=== PATIENT | male | born 1965 | race Caucasian/White ===

== ENCOUNTER 2020-12-04 17:52 | Emergency (ER) | payer MEDICARE, MEDICAID, SELFPAY ==
--- NOTE | ~2020-12-04 | CT_ITS ---
EXAMINATION: CT CHEST WITHOUT CONTRAST CLINICAL INFORMATION: Fall. Left chest wall bruising. Pain on inspiration. COMPARISON: 01/25/2017 TECHNIQUE: Multidetector volumetric CT imaging of the chest was done. Axial MIP volume rendering provided. Sagittal and coronal reformatted images were obtained. This CT examination was performed using dose optimization techniques as appropriate, variously including the following: *Automated exposure control *Adjustment of mA and/or kV according to patient size (this includes techniques or standardized protocols for targeted exams where dose is matched to indication/reason for exam; i.e. extremities or head) *Use of iterative reconstruction technique DLP: 1536 mGy-cm (in conjunction with head and cervical spine CTs) FINDINGS: LUNGS: The central airways are patent. Mild bronchial wall thickening of the lower lobes. Mild centrilobular emphysema. Paraseptal emphysema at the lung apices. There is a spiculated right upper lobe nodule measuring 0.8 cm on series 24 image 91. This is similar in appearance to the 2017 study. Multiple calcified granulomata are present. No pneumothorax. MEDIASTINUM: Normal heart size. Coronary artery calcifications are present. No mediastinal lymphadenopathy. The thyroid gland is unremarkable. PLEURA: There is no pleural effusion. No pleural mass or thickening. AXILLA: No lymphadenopathy. Left chest wall generator noted. UPPER ABDOMEN: Simple cyst at the midpole of the right kidney measuring 2.2 cm. No follow-up imaging recommended. OSSEOUS STRUCTURES: No acute or suspicious osseous abnormality. Mild degenerative changes of the spine. The ribs appear intact. CT/CT chest wo con IMPRESSION: No acute traumatic finding of the chest. No rib fractures are identified. Chronic changes in the lungs of emphysema. Spiculated right apical nodule is similar in appearance to the 2017 study.
--- NOTE | ~2020-12-04 | CT_ITS ---
EXAMINATION: NONCONTRAST HEAD CT NONCONTRAST CERVICAL SPINE CT INDICATION INFORMATION: Head trauma. Loss of balance. COMPARISON: 02/27/2019 TECHNIQUE: Separate noncontrast CT examinations of the head and cervical spine were performed. Coronal and sagittal images were created for each examination at the technologist workstation. This CT examination was performed using dose optimization techniques as appropriate, variously including the following: *Automated exposure control *Adjustment of mA and/or kV according to patient size (this includes techniques or standardized protocols for targeted exams where dose is matched to indication/reason for exam; i.e. extremities or head) *Use of iterative reconstruction technique DLP: 1536 mGy-cm (in conjunction with chest CT) FINDINGS: Head: Redemonstration of postoperative findings related to right-sided craniotomy. Resection cavity of the right temporal and parietal lobes communicating with the right lateral ventricle where there is also ex vacuo dilatation. Gliosis of the posterior right frontal lobe, right parietal lobe, and right temporal lobe, unchanged. There is no evidence of acute intracranial hemorrhage or territorial infarction. No abnormal mass effect or midline shift is seen. Pierce to white matter differentiation is well preserved. No extra-axial fluid collections are identified. No hydrocephalus. No acute osseous or soft tissue abnormality. The mastoid air cells and visualized portions of the paranasal sinuses are well aerated. Cervical spine: Straightening of the normal cervical lordosis. There is anatomic alignment of the vertebral bodies and posterior elements. The atlantoaxial and atlantooccipital articulations are intact. Vertebral body heights are maintained. There is multilevel intervertebral disc space narrowing with endplate osteophyte formation and facet arthropathy. No evidence of acute fracture. No prevertebral soft tissue swelling. Paraseptal emphysema at the lung apices noted. The thyroid gland is unremarkable. CT/CT cervical spine wo con IMPRESSION: 1. No acute intracranial finding. Chronic postoperative changes. 2. No acute fracture or malalignment of the cervical spine with mild to moderate multilevel degenerative change.
[2020-12-04 18:20] VITALS: BP 115/61; PULSE 55; RESP 16; TEMP 37; O2SAT 98; BMI 28.7
--- NOTE | 2020-12-04 21:23 | ED_ITS ---
HPI - Fall General Chief Complaint: Fall Stated Complaint: fall Time Seen by Provider: 12/04/20 21:00 Source: patient Mode of arrival: ambulatory Limitations: no limitations History of Present Illness HPI Narrative: 55-year-old male presents with injury sustained from a fall last Monday. States that he fell backwards hit the back of his head and the left chest wall onto the ground. States that he does feel loss of balance, and left- sided chest wall pain. He does have a history of multiple brain surgeries with traumatic brain injury in the past. He is unsure if this loss of balance is because of new injury. complaint: fall Onset (ago): week(s) (1) Fall from: standing Fall witnessed: no Place fall occurred: home Loss of consciousness: none Prolonged down time: no Symptoms prior to fall: none Context: tripped/slipped Location of injury: head and chest Severity: moderate Quality: aching Associated symptoms (after fall): headache, neck pain, lightheaded and vertigo Related Data Allergies Allergy/AdvReac Type Severity Reaction Status Date / Time No Known Allergies Allergy Verified 01/27/20 13:42 Review of Systems Review of Systems: Constitutional: No Fever, No Chills ENT/Mouth: No Ear Pain, No Hoarseness, No sore throat Eyes: No Eye Pain, No Swelling, No Redness, No Foreign Body Cardiovascular: Positive Chest Pain, No SOB Respiratory: No Cough, No Dyspnea Gastrointestinal: No Nausea, No Vomiting, No Diarrhea, No abdominal Pain Genitourinary: No Dysuria, No Hematuria Musculoskeletal: positive neck and chest wall pain, No Myalgias, No Joint Swelling Skin: No Skin lacerations, No rash Neuro: No Weakness, No Numbness, No Paresthesias, No Loss of Consciousness, positive Dizziness, positive Headache Psych: No Anxiety/Panic, No Depression Heme/Lymph: no easy bruising, no Lymphadenopathy Endocrine: No Polyuria, No Polydipsia Yes all other systems are reviewed and are negative [facility] Past Medical History Attestation statement: The following information was validated with the patient. 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 Degenerative disc disease, cervical GERD (gastroesophageal reflux disease) History of DVT (deep vein thrombosis) Lupus anticoagulant positive Pulmonary nodule Seizure disorder Tarsal tunnel syndrome of left side Thrombocytopenia Tobacco abuse Ulnar neuropathy Surgical History History of surgery Family History Family History Father CVD (cardiovascular disease) Cancer of spine Mother Lung cancer Maternal Grandfather Gastric cancer Paternal Grandfather Colon cancer Paternal Aunt Breast cancer Social History Social History Advance Directives: No Physical Exam Vital Signs: Vital Signs: Last Vital Signs Temp 98.6 F 12/04/20 18:20 Pulse 55 12/04/20 18:20 Resp 16 12/04/20 18:20 BP 115/61 12/04/20 18:20 Pulse Ox 98 12/04/20 18:20 Body Mass Index 28.7 Appearance: Alert. Oriented X3. No acute distress. Head: Normal external exam. Normocephalic. Atraumatic. No Chacko signs noted. No raccoon eyes noted Eyes: PERRLA. EOMI. Conjunctiva and sclera normal. Eyelids normal. ENT: TM's Normal. Pharynx normal. Uvula midline. Moist mucous membranes. No trismus noted. No drooling noted. No muffled voice noted. Neck: Normal inspection. Neck supple. No adenopathy. Thyroid Normal. No meningeal signs. No neck mass noted. Vertebral tenderness noted without any step-offs. CVS: Normal heart rate and rhythm. Heart sound normal. No murmurs noted. Pulses equal to all extremities. Respiratory: No respiratory distress. Painless inspiration. Breath sounds normal. No wheezes/rales/rhonchi noted. Chest wall tender to palpation, bruising noted to the left chest wall at the midclavicular line to the nipple. No accessory muscle usage noted or decreased air movement noted. Abdomen: Soft and nontender. Bowel sounds normal in all 4 quadrants. No distention noted. No organomegaly noted. No visible injury noted. Back: No CVA tenderness. Full range of motion noted. Skin: Skin warm and dry. Normal skin color. Normal skin turgor. No rashes/lesions/lacerations noted. Extremities: No lower extremity edema. Extremities exhibit normal range of motion. Extremities nontender. Neuro: cranial nerves 2-12 intact, no focal neural deficits, strength 5/5 to all extremities no sensory deficit. Positive Romberg. Course Course Course Narrative: Patient presents with injury sustained from fall that occurred approximately week ago. Patient states to have some dizziness, loss of balance, and has left wall chest pain with some bruising from the midclavicular line to the nipple. Will order CT scan of head neck and chest. Patient does have a positive Romberg, prior history of TBI and brain surgery. CTA of head and neck are negative for acute findings. CT of chest is negative. Plan of care is to discharge home. Patient verbalized understanding of and agrees to plan of care discharge home. MDM - Fall Differential Diagnosis Differential diagnosis: Likely dislocation, fracture, compression fracture and concussion without loss of consciousness Medical Records Attestation: I reviewed the patient's medical records. Imaging Data Chest CT: Attestation: I personally reviewed and interpreted this imaging study as follows: Radiologist's impression: EXAMINATION: CT CHEST WITHOUT CONTRAST CLINICAL INFORMATION: Fall. Left chest wall bruising. Pain on inspiration.? COMPARISON: 01/25/2017? TECHNIQUE: Multidetector volumetric CT imaging of the chest was done. Axial MIP volume rendering provided. Sagittal and coronal reformatted images were obtained.? This CT examination was performed using dose optimization techniques as appropriate, variously including the following: *Automated exposure control *Adjustment of mA and/or kV according to patient size (this includes techniques or standardized protocols for targeted exams where dose is matched to indication/reason for exam; i.e. extremities or head) *Use of iterative reconstruction technique DLP: 1536 mGy-cm (in conjunction with head and cervical spine CTs) FINDINGS: LUNGS: The central airways are patent. Mild bronchial wall thickening of the lower lobes. Mild centrilobular emphysema. Paraseptal emphysema at the lung apices. There is a spiculated right upper lobe nodule measuring 0.8 cm on series 24 image 91. This is similar in appearance to the 2017 study. Multiple calcified granulomata are present. No pneumothorax.? MEDIASTINUM: Normal heart size. Coronary artery calcifications are present. No mediastinal lymphadenopathy. The thyroid gland is unremarkable.? PLEURA: There is no pleural effusion. No pleural mass or thickening.? AXILLA: No lymphadenopathy. Left chest wall generator noted. UPPER ABDOMEN: Simple cyst at the midpole of the right kidney measuring 2.2 cm. No follow-up imaging recommended.? OSSEOUS STRUCTURES: No acute or suspicious osseous abnormality. Mild degenerative changes of the spine. The ribs appear intact.? CT/CT chest wo con IMPRESSION: No acute traumatic finding of the chest. No rib fractures are identified. ? Chronic changes in the lungs of emphysema. Spiculated right apical nodule is similar in appearance to the 2017 study.? ? CT head neck: Attestation: I personally reviewed and interpreted this imaging study as follows: Radiologist's impression: EXAMINATION: NONCONTRAST HEAD CT NONCONTRAST CERVICAL SPINE CT INDICATION INFORMATION: Head trauma. Loss of balance. COMPARISON: 02/27/2019 TECHNIQUE: Separate noncontrast CT examinations of the head and cervical spine were performed. Coronal and sagittal images were created for each examination at the technologist workstation. This CT examination was performed using dose optimization techniques as appropriate, variously including the following: *Automated exposure control *Adjustment of mA and/or kV according to patient size (this includes techniques or standardized protocols for targeted exams where dose is matched to indication/reason for exam; i.e. extremities or head) *Use of iterative reconstruction technique DLP: 1536 mGy-cm (in conjunction with chest CT) FINDINGS: Head: Redemonstration of postoperative findings related to right-sided craniotomy. Resection cavity of the right temporal and parietal lobes communicating with the right lateral ventricle where there is also ex vacuo dilatation. Gliosis of the posterior right frontal lobe, right parietal lobe, and right temporal lobe, unchanged. There is no evidence of acute intracranial hemorrhage or territorial infarction. No abnormal mass effect or midline shift is seen. Pierce to white matter differentiation is well preserved. No extra-axial fluid collections are identified. No hydrocephalus.? No acute osseous or soft tissue abnormality. The mastoid air cells and visualized portions of the paranasal sinuses are well aerated. Cervical spine: Straightening of the normal cervical lordosis. There is anatomic alignment of the vertebral bodies and posterior elements. The atlantoaxial and atlantooccipital articulations are intact. Vertebral body heights are maintained. There is multilevel intervertebral disc space narrowing with endplate osteophyte formation and facet arthropathy. No evidence of acute fracture. No prevertebral soft tissue swelling. Paraseptal emphysema at the lung apices noted. The thyroid gland is unremarkable. CT/CT head/brain wo con IMPRESSION: ? 1. No acute intracranial finding. Chronic postoperative changes. 2. No acute fracture or malalignment of the cervical spine with mild to moderate multilevel degenerative change. Discharge Plan Discharge Clinical Impression: Concussion without loss of consciousness, Rib contusion Patient Disposition: Home, Self-Care Instructions: Concussion (ED), Contusion in Adults (ED), Post Concussion Syndrome (ED), Rib Contusion (ED) Additional Instructions: You were evaluated for injury sustained from a fall. Your CT scan of head neck are negative for acute findings. CT scan of the chest is negative for fracture, does show some chronic changes that need to be followed by your primary care physician. CT/CT chest wo con IMPRESSION: No acute traumatic finding of the chest. No rib fractures are identified. ? Chronic changes in the lungs of emphysema. Spiculated right apical nodule is similar in appearance to the 2017 study.? ? Your injuries are consistent with a rib contusion. Please use Tylenol Motrin as needed for pain management. Thank you for choosing this emergency department for evaluation. Please follow-up with primary care physician as needed. Return to the emergency department for any new, concerning, or worsening symptoms. Interventions: ED Discharge Assessment Last Done: 12/04/20 23:51 Discharge Date/Time: 12/04/20 23:51
== END 2020-12-04 23:51 | disposition home or self-care (01) ==
PROVIDERS: Emergency Provider Emergency Medicine Emergency Medical Services; PCP Internal Medicine
DX: S06.0X0A Concussion without loss of consciousness, initial encounter (principal); S20.213A Contusion of bilateral front wall of thorax, initial encounter; R07.81 Pleurodynia; M54.2 Cervicalgia; W01.0XXA Fall on same level from slipping, tripping and stumbling without subsequent striking against object, initial encounter; Y93.9 Activity, unspecified; Y92.9 Unspecified place or not applicable; Y99.9 Unspecified external cause status; Z87.820 Personal history of traumatic brain injury; Z79.899 Other long term (current) drug therapy
CPT/HCPCS: 70450; 71250; 72125; 99283; 99284

== ENCOUNTER 2020-12-24 08:54 | Outpatient (REF) | payer MEDICARE, MEDICAID, SELFPAY ==
[2020-12-24 09:27] LABS: Hematocrit 44.3 % (42-52); Hemoglobin 14.6 g/dl (14.0-18.0); Mean Corpuscular Hemoglobin 30.7 pg (27.0-33.0); Mean Corpuscular Volume 93.1 fL (80-98); Mean Platelet Volume 10.8 fL (9.4-12.4); Platelet Count 116 X10*3/uL (160-400); Red Blood Count 4.76 X10*6/uL (4.60-5.80); Red Cell Distribution Width 13.5 % (11.0-16.0)
[2020-12-24 10:05] LABS: Anion Gap 12 (12-20); Blood Urea Nitrogen 9 mg/dL (9-16); Calcium 9.5 mg/dL (8.4-10.2); Carbon Dioxide 21 mmol/L (22-29); Chloride 113 mmol/L (96-108); Cholesterol 178 mg/dL; Estimated Glomerular Filt Rate > 60; Glucose Fasting 106 mg/dL (60-99); HDL Cholesterol 41 mg/dL; LDL Cholesterol Calculated 123 mg/dl; Potassium 4.4 mmol/L (3.3-5.1); Sodium 142 mmol/L (135-145); Triglycerides 71 mg/dL
[2020-12-24 10:17] LABS: Prostate Specific Antigen Scr 0.19 ng/mL (<0.05-4.0); Vitamin D 25-OH Total 46.6 ng/mL (>30)
== END 2020-12-24 08:55 | disposition home or self-care (01) ==
LOC: HO.LAB 08:54
PROVIDERS: PCP Internal Medicine; Visit Provider Nurse Practitioner Family
DX: G40.909 Epilepsy, unspecified, not intractable, without status epilepticus (principal); R26.81 Unsteadiness on feet; E55.9 Vitamin D deficiency, unspecified; F32.1 Major depressive disorder, single episode, moderate; E78.00 Pure hypercholesterolemia, unspecified; Z12.5 Encounter for screening for malignant neoplasm of prostate; Z13.1 Encounter for screening for diabetes mellitus
CPT/HCPCS: 36415; 80048; 80061; 82306; 82947; 84153; 85027

== ENCOUNTER 2021-01-05 14:48 | Emergency (ER) | payer MEDICARE, MEDICAID, SELFPAY ==
--- NOTE | 2021-01-05 | ECG_ITS ---
Test Reason : SEIZURE Blood Pressure : / mmHG Vent. Rate : 070 BPM Atrial Rate : 070 BPM P-R Int : 142 ms QRS Dur : 096 ms QT Int : 382 ms P-R-T Axes : 064 084 039 degrees QTc Int : 412 ms Normal sinus rhythm Nonspecific ST abnormality Borderline ECG When compared with ECG of 19-OCT-2018 11:22, Vent. rate has increased BY 28 BPM Referred By: Jaida Chun Electronically Signed By:JOSE BA MD
--- NOTE | ~2021-01-05 | CT_ITS ---
EXAMINATION: CT BRAIN AND CT CERVICAL SPINE WITHOUT CONTRAST. CLINICAL INFORMATION: Seizure and head injury. COMPARISON: None TECHNIQUE: 5 mm thin axial and reformatted 2 mm thin coronal images of brain were obtained. Subsequently axial 3 mm thin and reformatted 2 mm thin sagittal and coronal images of cervical spine were obtained. DLP 1147 FINDINGS: BRAIN: There is a right parietal craniotomy and right parietal temporal lobe encephalomalacia from old intervention. There is no acute intra-axial, extra-axial bleed, masses or midline shift. There is no acute infarction in evolution. There is ex vacuole dilatation of right lateral ventricle occipital horn. Bone windows reveal a right parietal craniotomy. No calvarial fracture seen. Bilateral mastoid sinuses and paranasal sinuses are well-aerated. CERVICAL SPINE: There is mild straightening of cervical lordosis. The vertebral heights and alignment is normal. There is loss of C3-C4, C5-C6 and C6-C7 disc heights with ventral spondylosis. No lytic or sclerotic process seen. The craniovertebral junction and the C1-C2 alignment is normal. The prevertebral and paravertebral soft tissues are normal. The airway is widely patent. There is mild bilateral apical bullous changes. CT/CT cervical spine wo con IMPRESSION: No acute intracranial process seen. There is a right right temporal encephalomalacia with overlying craniotomy changes from previous intervention. No midline shift. Mild straightening of cervical lordosis with degenerative disc changes C3-C4, C5-C6 and C6-C7 disc levels. No visible acute fracture, dislocation or subluxation seen. There is bilateral apical bullous disease
--- NOTE | ~2021-01-05 | CT_ITS ---
EXAMINATION: CT BRAIN AND CT CERVICAL SPINE WITHOUT CONTRAST. CLINICAL INFORMATION: Seizure and head injury. COMPARISON: None TECHNIQUE: 5 mm thin axial and reformatted 2 mm thin coronal images of brain were obtained. Subsequently axial 3 mm thin and reformatted 2 mm thin sagittal and coronal images of cervical spine were obtained. DLP 1147 FINDINGS: BRAIN: There is a right parietal craniotomy and right parietal temporal lobe encephalomalacia from old intervention. There is no acute intra-axial, extra-axial bleed, masses or midline shift. There is no acute infarction in evolution. There is ex vacuole dilatation of right lateral ventricle occipital horn. Bone windows reveal a right parietal craniotomy. No calvarial fracture seen. Bilateral mastoid sinuses and paranasal sinuses are well-aerated. CERVICAL SPINE: There is mild straightening of cervical lordosis. The vertebral heights and alignment is normal. There is loss of C3-C4, C5-C6 and C6-C7 disc heights with ventral spondylosis. No lytic or sclerotic process seen. The craniovertebral junction and the C1-C2 alignment is normal. The prevertebral and paravertebral soft tissues are normal. The airway is widely patent. There is mild bilateral apical bullous changes. CT/CT head/brain wo con IMPRESSION: No acute intracranial process seen. There is a right right temporal encephalomalacia with overlying craniotomy changes from previous intervention. No midline shift. Mild straightening of cervical lordosis with degenerative disc changes C3-C4, C5-C6 and C6-C7 disc levels. No visible acute fracture, dislocation or subluxation seen. There is bilateral apical bullous disease
[2021-01-05 15:04] VITALS: BP 113/64; BP 135/59; PULSE 69; PULSE 77; TEMP 37.1; O2SAT 96; BMI 25.0
--- NOTE | 2021-01-05 15:25 | ED_ITS ---
HPI - Seizure General Chief Complaint: Seizure Stated Complaint: SZ W/FALL OUTSIDE,HEAD ABRASIONS Time Seen by Provider: 01/05/21 15:22 Source: patient and EMS Mode of arrival: EMS Limitations: no limitations History of Present Illness HPI Narrative: 55-year-old male came in by ambulance after having seizure. 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 Patient in the emergency department is awake, alert, able to provide decent history. Seizure medications patient take are clobazam?10 mg PO BID lacosamide?(Vimpat) 300 mg PO BID lamotrigine?50 mg PO BID lamotrigine?400 mg PO BID lorazepam?0 mg PO topiramate?50 mg PO BID topiramate?200 mg PO BID Related Data Home Medications Medication Instructions Recorded Confirmed cholecalciferol (vitamin D3) 50 50 mcg PO DAILY 12/23/20 12/23/20 mcg (2,000 unit) capsule clobazam 10 mg tablet 10 mg PO BID 12/23/20 12/23/20 lacosamide 100 mg tablet (Vimpat) 300 mg PO BID tab 12/23/20 12/23/20 lamotrigine 200 mg tablet 400 mg PO BID 12/23/20 12/23/20 lamotrigine 25 mg tablet 50 mg PO BID 12/23/20 12/23/20 lorazepam 1 mg tablet 0 mg PO 12/23/20 12/23/20 topiramate 200 mg tablet 200 mg PO BID 12/23/20 12/23/20 topiramate 25 mg sprinkle capsule 50 mg PO BID cap 12/23/20 12/23/20 Allergies Allergy/AdvReac Type Severity Reaction Status Date / Time No Known Allergies Allergy Verified 12/23/20 10:41 Review of Systems Review of Systems: All other systems are reviewed and are negative Constitutional: Reports as per HPI and Reports no additional constitutional complaints Eyes: Reports as per HPI and Reports no additional eye complaints Reports system reviewed and no additional complaints, except as documented Cardiovascular: Reports as per HPI and Reports no additional cardiovascular complaints Respiratory: Reports as per HPI and Reports no additional respiratory complaints Gastrointestinal: Reports as per HPI and Reports no additional gastrointestinal complaints Genitourinary: Reports no additional female genitourinary complaints Musculoskeletal: Reports no additional musculoskeletal complaints Skin/Breast: Reports system reviewed and no additional complaints, except as docu Psychiatric: Reports no additional psychiatric complaints Endocrine: Reports no additional endocrine complaints Hematologic/Lymphatic: Reports no additional hematologic/lymphatic complaints Allergic/Immunologic: Reports no additional allergic/immunologic complaints Reports system reviewed and no additional complaints, except as documented and Reports Abnormal speech present [facility] Past Medical History Medical History Anxiety and depression Carpal tunnel syndrome, left Closed left arm fracture 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 Degenerative disc disease, cervical GERD (gastroesophageal reflux disease) History of DVT (deep vein thrombosis) Lupus anticoagulant positive Pulmonary nodule Seizure disorder Tarsal tunnel syndrome of left side Thrombocytopenia Tobacco abuse Ulnar neuropathy Surgical History History of surgery History of surgery Family History Family History Father CVD (cardiovascular disease) Cancer of spine Mother Lung cancer Maternal Grandfather Gastric cancer Paternal Grandfather Colon cancer Paternal Aunt Breast cancer Social History Social History Housing: Condominium Alcohol intake: never Patient Tobacco Use Status: Current everyday Tobacco user Tobacco use type: Cigarette Cigarettes Per Day: 10 Advance Directives: No Advance Directives Information Provided: No service: No Current occupational status: disabled Physical Exam Vital Signs: Vital Signs: Last Vital Signs Temp 98.7 F 01/05/21 15:04 Pulse 69 01/05/21 15:04 BP 113/64 01/05/21 15:04 Pulse Ox 96 01/05/21 15:04 Body Mass Index 25.0 Vital signs have been reviewed as appeared to be correct. Blood pressure normal. Heart rate normal. Respiration rate normal. Temperature normal. Oxygen saturation normal. Appearance: Alert. Oriented X3. No acute distress. Head: Normal external exam. Normocephalic. Atraumatic. Half a cm small cut to the left temporal area. Eyes: PERRLA. EOMI. Conjunctiva and sclera normal. Eyelids normal. ENT: TM's Normal. Pharynx normal. Uvula midline. Moist mucous membranes. No trismus noted. No drooling noted. No muffled voice noted. Neck: Normal inspection. Neck supple. FROM. No adenopathy. Thyroid Normal. No meningeal signs. No neck mass noted. CVS: Normal heart rate and rhythm. Heart sound normal. No murmurs noted. Pulses normal throughout. Respiratory: No respiratory distress. Painless inspiration. Breath sounds normal. No wheezes/rales/rhonchi noted. Chest nontender. No accessory muscle usage noted or decreased air movement noted. Abdomen: Soft and nontender. Bowel sounds normal in all 4 quadrants. No distention noted. No organomegaly noted. No visible injury noted. Back: No CVA tenderness. Full range of motion noted. Skin: Skin warm and dry. Normal skin color. Normal skin turgor. No rashes/lesions/lacerations noted. Extremities: No lower extremity edema. Extremities exhibit normal range of motion. Extremities nontender. Neuro: Oriented X 3. Cranial nerve exam: II-XII are grossly intact No motor deficit. No sensory deficit. Reflexes normal. Course Course Course Narrative: Assessment and plan. 55-year-old male known history of seizure claimed that he is compliant with his medications, had a seizure with aura today, patient now is awake, alert, oriented x3, feels better, patient would like to be discharged home patient will be walking home which is about 15 minutes, I offer the patient to call a taxi or get a ride from a friend or family member the patient would not wait. MDM - Seizure Medical Records Attestation: I reviewed the patient's medical records. Imaging Data Head, cervical spine CT: Radiologist's impression: No acute intracranial process seen. ? There is a right right temporal encephalomalacia with overlying craniotomy changes from previous intervention. No midline shift. ? Mild straightening of cervical lordosis with degenerative disc changes C3-C4, C5-C6 and C6-C7 disc levels. No visible acute fracture, dislocation or subluxation seen. ? There is bilateral apical bullous disease? Discharge Plan Discharge Clinical Impression: Seizure disorder Patient Disposition: Home, Self-Care Instructions: Generalized Tonic Clonic Seizures (ED) Prescriptions: No Action Vimpat 100 mg tablet 300 mg PO BID RF: 0 cholecalciferol (vitamin D3) 50 mcg (2,000 unit) capsule 50 mcg PO DAILY RF: 0 clobazam 10 mg tablet 10 mg PO BID RF: 0 topiramate 25 mg capsule, sprinkle 50 mg PO BID RF: 0 topiramate 200 mg tablet 200 mg PO BID RF: 0 lamotrigine 200 mg tablet 400 mg PO BID RF: 0 lamotrigine 25 mg tablet 50 mg PO BID RF: 0 lorazepam 1 mg tablet 0 mg PO RF: 0 Referrals: Po,Ileana Dumont MD [Primary Care Provider] - 2 days
== END 2021-01-05 16:47 | disposition home or self-care (01) ==
PROVIDERS: Emergency Provider Emergency Medicine; PCP Internal Medicine
DX: G40.909 Epilepsy, unspecified, not intractable, without status epilepticus (principal); F17.210 Nicotine dependence, cigarettes, uncomplicated; Z71.6 Tobacco abuse counseling; Z79.899 Other long term (current) drug therapy
CPT/HCPCS: 70450; 72125; 93005; 99283; 99284

== ENCOUNTER 2021-05-10 11:22 | Outpatient (REF) | payer MEDICARE, MEDICAID, SELFPAY ==
[2021-05-10 11:52] LABS: MANUAL DIFF FLAG NO
[2021-05-10 12:18] LABS: Basophils Percent Auto 0.6 % (0-2); Eosinophils Percent Auto 0.8 % (0-4); Hematocrit 42.8 % (42.0-52.0); Hemoglobin 14.2 g/dl (14.0-18.0); Imm Gran Abs Auto 0.01 X10*3/uL (0.00-0.03); Imm Gran Pct Auto 0.2 % (0.0-0.4); Lymphocytes Absolute Auto 1.4 X10*3/uL (1.2-4.9); Mean Corpuscular HGB Conc 33.2 g/dl (31.0-36.0); Mean Corpuscular Hemoglobin 30.6 pg (27.0-33.0); Mean Corpuscular Volume 92.2 fL (80.0-98.0); Mean Platelet Volume 10.8 fL (9.4-12.4); Monocytes Absolute Auto 0.5 X10*3/uL (0.1-1.2); Monocytes Percent Auto 9.1 % (2-11); Neutrophils Absolute Auto 3.1 x10*3/uL (2.0-8.3); Neutrophils Percent Auto 61.3 % (45-73); Platelet Count 132 X10*3/uL (160-400); Red Blood Count 4.64 X10*6/uL (4.60-5.80); Red Cell Distribution Width 13.1 % (11.0-16.0); White Blood Count 5.1 X10*3/uL (4.8-10.8)
[2021-05-10 12:39] LABS: Alanine Aminotransferase 27 U/L (0-40); Albumin Level 4.5 g/dL (3.5-5.0); Alkaline Phosphatase 97 U/L (39-117); Anion Gap 10 (12-20); Aspartate Amino Transferase 25 U/L (5-37); Bilirubin Total 0.4 mg/dL (0.0-1.0); Blood Urea Nitrogen 12 mg/dL (9-16); Calcium 9.8 mg/dL (8.4-10.2); Carbon Dioxide 27 mmol/L (22-29); Chloride 109 mmol/L (96-108); Estimated Glomerular Filt Rate > 60; Glucose Random 102 mg/dL (60-115); Potassium 4.3 mmol/L (3.3-5.1); Sodium 142 mmol/L (135-145); Total Protein 7.5 g/dL (6.5-8.0)
[2021-05-10 13:01] LABS: Free T4 (Free Thyroxine) 1.13 ng/dL (0.71-1.85); Thyroid Stimulating Hormone 1.37 uIU/mL (0.32-4.0)
[2021-05-10 13:17] LABS: Folate 19.2 ng/mL (> or = 4.0); Vitamin B12 410 pg/mL (200-900)
== END 2021-05-10 11:23 | disposition home or self-care (01) ==
LOC: HO.LAB 11:22
PROVIDERS: PCP Internal Medicine; Visit Provider Internal Medicine
DX: Z13.89 Encounter for screening for other disorder (principal)
CPT/HCPCS: 36415; 80053; 82607; 82746; 84439; 84443; 85025

== ENCOUNTER 2021-05-10 12:02 | Emergency (ER) | payer MEDICARE, MEDICAID, SELFPAY ==
--- NOTE | ~2021-05-10 | CT_ITS ---
EXAMINATION: CT HEAD WITHOUT CONTRAST CT CERVICAL SPINE WITHOUT CONTRAST CLINICAL INFORMATION: Seizure. Headache. COMPARISON: CT head and cervical spine 01/05/2021 TECHNIQUE: Imaging was performed from the skull base to vertex without intravenous administration of contrast. In addition, helical noncontrast CT imaging was acquired through the cervical spine and source images were reviewed along with axial reconstructions and sagittal and coronal MPRs. [This CT examination was performed using dose optimization techniques as appropriate, variously including the following: *Automated exposure control *Adjustment of mA and/or kV according to patient size (this includes techniques or standardized protocols for targeted exams where dose is matched to indication/reason for exam; i.e. extremities or head) *Use of iterative reconstruction technique] DLP: 1258 mGy-cm FINDINGS: HEAD: Status post right parietal craniotomy. Large geographic area of encephalomalacia indicating to the right lateral ventricle involving the right temporal parietal lobe. This unchanged since prior study. No acute intracranial hemorrhage or mass effect. No extra-axial collection. No mass effect. CERVICAL SPINE: There is no evidence of acute cervical spine fracture. Vertebral bodies remain normal in height. Cervical vertebrae have normal alignment. There is multilevel degenerative spondylosis of the cervical spine with disc height narrowing and endplate spurs and facet joint arthrosis No pre- or paravertebral soft tissue abnormality is identified. Emphysematous change of lung apices. CT/CT cervical spine wo con IMPRESSION: 1. No acute intracranial pathology. Stable old right parietal craniotomy and large geographic area of encephalomalacia in the right parietal temporal lobe. 2. No CT evidence of acute cervical spine fracture or traumatic subluxation
--- NOTE | ~2021-05-10 | CT_ITS ---
EXAMINATION: CT HEAD WITHOUT CONTRAST CT CERVICAL SPINE WITHOUT CONTRAST CLINICAL INFORMATION: Seizure. Headache. COMPARISON: CT head and cervical spine 01/05/2021 TECHNIQUE: Imaging was performed from the skull base to vertex without intravenous administration of contrast. In addition, helical noncontrast CT imaging was acquired through the cervical spine and source images were reviewed along with axial reconstructions and sagittal and coronal MPRs. [This CT examination was performed using dose optimization techniques as appropriate, variously including the following: *Automated exposure control *Adjustment of mA and/or kV according to patient size (this includes techniques or standardized protocols for targeted exams where dose is matched to indication/reason for exam; i.e. extremities or head) *Use of iterative reconstruction technique] DLP: 1258 mGy-cm FINDINGS: HEAD: Status post right parietal craniotomy. Large geographic area of encephalomalacia indicating to the right lateral ventricle involving the right temporal parietal lobe. This unchanged since prior study. No acute intracranial hemorrhage or mass effect. No extra-axial collection. No mass effect. CERVICAL SPINE: There is no evidence of acute cervical spine fracture. Vertebral bodies remain normal in height. Cervical vertebrae have normal alignment. There is multilevel degenerative spondylosis of the cervical spine with disc height narrowing and endplate spurs and facet joint arthrosis No pre- or paravertebral soft tissue abnormality is identified. Emphysematous change of lung apices. CT/CT head/brain wo con IMPRESSION: 1. No acute intracranial pathology. Stable old right parietal craniotomy and large geographic area of encephalomalacia in the right parietal temporal lobe. 2. No CT evidence of acute cervical spine fracture or traumatic subluxation
--- NOTE | ~2021-05-10 | XR_ITS ---
EXAMINATION: XR ELBOW, RIGHT CLINICAL INFORMATION: Pain. Seizure. COMPARISON: None TECHNIQUE: AP, lateral, and oblique views of the right elbow. FINDINGS: The bones and soft tissues are normal. No fracture or joint effusion. Alignment is anatomic. Joint spaces are maintained. XR/XR elbow RT min 3V IMPRESSION: Normal right elbow.
--- NOTE | ~2021-05-10 | XR_ITS ---
EXAMINATION: LEFT HAND AND WRIST X-RAY CLINICAL INFORMATION: Seizure. Pain. COMPARISON: Previous x-ray most recent October 2019 TECHNIQUE: 4 views of the left hand and wrist FINDINGS: Bone alignment is normal. No fracture or dislocation is seen. Joint spaces are normal. Soft tissues are normal. XR/XR hand wrist LT IMPRESSION: Unremarkable exam.
--- NOTE | ~2021-05-10 | XR_ITS ---
EXAMINATION: XR CHEST CLINICAL INFORMATION: Seizure COMPARISON: Previous chest x-ray most recent August [address] November 2020 TECHNIQUE: Frontal view of the chest was obtained. FINDINGS: The cardiac and mediastinal contours are stable. The lungs are clear. There is no pleural effusion or pneumothorax. There is a battery in the left chest with lead extending toward the left lower neck. Bony structures are unremarkable. XR/XR chest 1V IMPRESSION: No evidence for acute disease in chest.
[2021-05-10 13:17] VITALS: BP 119/79; PULSE 70; RESP 19; TEMP 36.2; O2SAT 98; BMI 27.3
[2021-05-10 15:25] VITALS: BP 129/58; PULSE 62; RESP 15; O2SAT 100
--- NOTE | 2021-05-10 15:25 | ECG_ITS ---
Test Reason : SEIZURE Blood Pressure : / mmHG Vent. Rate : 059 BPM Atrial Rate : 059 BPM P-R Int : 142 ms QRS Dur : 098 ms QT Int : 412 ms P-R-T Axes : 064 080 056 degrees QTc Int : 407 ms Sinus bradycardia Otherwise normal ECG When compared with ECG of 05-JAN-2021 15:10, No significant change was found Referred By: Norma Manuel Electronically Signed By:LISA RANGEL MD
--- NOTE | 2021-05-10 16:00 | ED_ITS ---
HPI - Seizure General Chief Complaint: Seizure Stated Complaint: SEIZURE ON MONDAY LIGHTHEADED Time Seen by Provider: 05/10/21 14:14 Source: patient Mode of arrival: ambulatory Limitations: no limitations History of Present Illness HPI Narrative: 55-year-old male with a past medical history of epileptic seizures currently on multiple seizure medications reports he is taking as prescribed although has intermittent and monthly breakthrough seizures despite taking his medications as prescribed presenting to the ED with complaints of a headache to the right side of his head along with right elbow pain and left hand pain after he had an unwitnessed seizure on Monday when he was at home. He reports that he did not have any symptoms prior to the seizure. He reports that he does not know if he hit his head due to he was alone and was it was unwitnessed. He reports he is unsure how long he was down for. He reports since he had his seizure he has been having a headache to the right side of his head along with left hand pain and right elbow pain. He denies being on any blood thinners. He denies any drug or alcohol usage. He denies any fevers, chills, dizziness, neck pain/stiffness, trouble swallowing or breathing, thoracic or lumbar pain, abdominal pain, chest pain or shortness of breath, dyspnea on exertion, orthopnea, palpitations, focal weakness or general weakness, nausea/vomiting/diarrhea or constipation, black or bloody stools, dysuria, hematuria, rashes or any other symptoms complaints or concerns at this time. Patient reports that he had outpatient labs that were due from his primary care provider this morning [place] [facility] [place] they are in the computer able to be visualized by us. Seizure medications patient take are?clobazam?10 mg PO BID lacosamide?(Vimpat) 300 mg PO BID lamotrigine?50 mg PO BID lamotrigine?400 mg PO BID lorazepam?0 mg PO topiramate?50 mg PO BID topiramate?200 mg PO BID complaint: seizure Onset (ago): day(s) (3) Description of Episode: loss of consciousness Witnessed: No Seizure History: Yes (age 19) Place: Home Possible Precipitating Event: none Associated symptoms: denies other symptoms Treatments prior to arrival: none Related Data Home Medications Medication Instructions Recorded Confirmed cholecalciferol (vitamin D3) 50 50 mcg PO DAILY 12/23/20 02/22/21 mcg (2,000 unit) capsule clobazam 10 mg tablet 10 mg PO BID 12/23/20 02/22/21 topiramate 200 mg tablet 200 mg PO BID 12/23/20 02/22/21 topiramate 25 mg sprinkle capsule 50 mg PO BID cap 12/23/20 02/22/21 aspirin 81 mg tablet,delayed 81 mg PO DAILY 02/22/21 02/22/21 release (Adult Aspirin Regimen) lacosamide 100 mg tablet (Vimpat) 200 mg PO BID tab 02/22/21 02/22/21 lorazepam 1 mg tablet 1 mg PO DAILY PRN tab 02/22/21 02/22/21 Allergies Allergy/AdvReac Type Severity Reaction Status Date / Time No Known Allergies Allergy Verified 02/22/21 10:56 Review of Systems Review of Systems: Constitutional : No Fever, No Chills, No Night Sweats, No Fatigue, No Malaise ENT/Mouth : No Ear Pain, No Nasal Congestion, No Sinus Pain, No sore throat, No Rhinorrhea Eyes: No Eye Pain, No Swelling, No Redness, No Foreign Body, No Discharge, No Vision Changes Cardiovascular : No Chest Pain, No SOB, No Dyspnea on Exertion, No Orthopnea, No Palpitations Respiratory : No Cough, No Sputum, No Wheezing, No Dyspnea Gastrointestinal : No Nausea, No Vomiting, No Diarrhea, No Constipation, No abdominal Pain, No Hematochezia, No Melena Genitourinary : No Dysuria, No Urinary Frequency, No Urinary Incontinence, No Urgency, No Flank Pain Musculoskeletal : + right elbow and left hand joint pain, No Myalgias Skin : No lacerations Neuro : + seizure with head injury/loss of consciousness and headache to the right side of the head, No Focal weakness, no general weakness, No Numbness, No Paresthesias, No Dizziness Yes all other systems are reviewed and are negative PMFSH Past Medical History Attestation statement: The following information was validated with the patient. 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 Degenerative disc disease, cervical GERD (gastroesophageal reflux disease) History of DVT (deep vein thrombosis) Lupus anticoagulant positive Pulmonary nodule Seizure disorder Tarsal tunnel syndrome of left side Thrombocytopenia Tobacco abuse Ulnar neuropathy Surgical History History of surgery History of surgery Family History Family History Father CVD (cardiovascular disease) Cancer of spine Mother Lung cancer Maternal Grandfather Gastric cancer Paternal Grandfather Colon cancer Paternal Aunt Breast cancer Social History Social History Housing: Condominium Alcohol intake: never Patient Tobacco Use Status: Current everyday Tobacco user Tobacco use type: Cigarette Cigarettes Per Day: 10 e-Cigarette/Vaping Use: Never Used Second Hand Smoke Exposure: No Use of substances other than those prescribed or required for medical reasons: No Advance Directives: No Advance Directives Information Provided: No service: No Current occupational status: disabled Physical Exam Vital Signs: Vital Signs: Last Vital Signs Temp 97.2 F 05/10/21 13:17 Pulse 62 05/10/21 15:25 Resp 15 05/10/21 15:25 BP 129/58 L 05/10/21 15:25 Pulse Ox 100 05/10/21 15:25 BMI result Body Mass Index 27.3 Vital signs have been reviewed as normal and appeared to be correct. Blood pressure normal. Heart rate normal. Respiration rate normal. Temperature normal. Oxygen saturation normal. Appearance: Alert. Oriented X3. No acute distress. Head: Normal external exam. Normocephalic. Atraumatic. Able to rotate head bilaterally. Eyes: PERRLA. EOMI. No nystagmus noted. Conjunctiva and sclera normal. Eyelids n ormal. Corneal reflex normal. No Chacko signs or raccoon eyes noted. ENT: EAC normal. TM's Normal. No hemo tamponade noted. No septal hematoma noted. Hearing normal. Pharynx normal. Uvula midline. tongue midline. Moist mucous membranes. No trismus noted. No drooling noted. No muffled voice noted. No nystagmus noted. Neck: Normal inspection. Neck supple. FROM. No adenopathy. Trachea midline. Thyroid Normal. No meningeal signs. No neck mass noted. CVS: Normal heart rate and rhythm. Heart sound normal. No murmurs noted. Pulses normal throughout. Respiratory: No respiratory distress. Painless inspiration. Breath sounds normal. No wheezes/rales/rhonchi noted. Chest nontender. No accessory muscle usage noted or decreased air movement noted. Abdomen: Soft and nontender. Bowel sounds normal in all 4 quadrants. No distention noted. No organomegaly noted. No visible injury noted. Back: No CVA tenderness. Full range of motion noted. Skin: Skin warm and dry. Normal skin color. Normal skin turgor. No rashes/lesions/lacerations noted. Extremities: Patient with mild tenderness palpation to the right elbow although no obvious ligamentous or tendon injury and no point tenderness is noted or signs of infection or abrasions/lacerations noted. He does have some mild soft tissue swelling and ecchymosis. To the left hand he has superficial abrasion no tenderness on my exam. He does not have any ligamentous or tendon injury noted to the left hand or wrist. No signs of infection noted to the left hand or wrist. Yes full range of motion of the left hand and wrist and right elbow. Otherwise all other Extremities exhibit normal range of motion and nontender. Able to shrug shoulders bilaterally and keep up against resistance. Neuro: Oriented X 3. No motor deficit. No sensory deficit. Reflexes normal. Moving all extremities. No focal motor deficits. Cranial nerves II-XI intact bilaterally. Facial strength normal. Normal cognition. Speech normal. Gait normal. Strength 5/5 throughout. No pronator drift. No tremor noted. No fasciculations noted. No rigidity noted. Muscle tone normal throughout. No asterixis noted. Avsvmd-bb-[id number] test normal. Heel to albert test normal. Tandem gait normal. Does not sway with eyes open. Romberg test negative. Rapid alternating movement upper extremity normal. Rapid alternating movement lower extremity normal. Hand drop from overhead Misses face. Course Course Course Narrative: 15:30pm - 55-year-old male with a past medical history of epileptic seizures currently on multiple seizure medications listed below reports he is taking as prescribed although has intermittent and monthly breakthrough seizures despite taking his medications as prescribed presenting to the ED with complaints of a headache to the right side of his head along with right elbow pain and left hand pain after he had an unwitnessed seizure on Monday when he was at home. He reports that he did not have any symptoms prior to the seizure. He reports that he does not know if he hit his head due to he was alone and was it was unwitnessed. He reports he is unsure how long he was down for. He reports since he had his seizure he has been having a headache to the right side of his head along with left hand pain and right elbow pain. He denies being on any blood thinners. He denies any drug or alcohol usage. Seizure medications patient take are?clobazam?10 mg PO BID lacosamide?(Vimpat) 300 mg PO BID lamotrigine?50 mg PO BID lamotrigine?400 mg PO BID lorazepam?0 mg PO topiramate?50 mg PO BID topiramate?200 mg PO BID - patient had outpatient labs done today his platelet count is 132 which is similar compared to prior. Chloride 109 which is similar compared to prior. Anion gap 10. Otherwise all other labs including TSH/folate and all other labs that were obtained as an outpatient were within normal limits. - therefore at this time will add a magnesium/CPK/Lamictal and Topamax levels along with a COVID swab. We will also obtain a CT scan of brain/cervical spine, a chest x-ray, right elbow and left hand and wrist x-ray along with an EKG then re-evaluate. Reevaluation(s) Reevaluation #1: - magnesium 2.1. CPK 376. Otherwise all other labs are within normal limits. COVID swab was negative. Lamictal and Topamax level pending. If abnormal patient will be called back. Otherwise CT scan of brain/cervical spine within normal limits along with chest x-ray and right elbow and left hand and wrist x- rays all within normal limits. Time: 16:54 [facility] - Seizure Medical Records Attestation: I reviewed the patient's medical records. Lab Data Attestation: I reviewed the patient's lab results. Labs: Lab Results 05/10/21 05/10/21 Range/Units 15:43 15:51 Magnesium 2.1 (1.6-2.6) mg/dL Total Creatine Kinase 376 H (38-174) U/L COVID-19 (CHOCO) Negative (Negative) COVID-19 Clin Com See Note Imaging Data CT scan of brain/cervical spine without contrast: Attestation: I personally reviewed and interpreted this imaging study as follows: Radiologist's impression: FINDINGS: HEAD: Status post right parietal craniotomy. Large geographic area of encephalomalacia indicating to the right lateral ventricle involving the right temporal parietal lobe. This unchanged since prior study. No acute intracranial hemorrhage or mass effect. No extra-axial collection. No mass effect. CERVICAL SPINE: There is no evidence of acute cervical spine fracture. Vertebral bodies remain normal in height. Cervical vertebrae have normal alignment. There is multilevel degenerative spondylosis of the cervical spine with disc height narrowing and endplate spurs and facet joint arthrosis No pre- or paravertebral soft tissue abnormality is identified. Emphysematous change of lung apices. CT/CT head/brain wo con IMPRESSION: 1. No acute intracranial pathology. Stable old right parietal craniotomy and large geographic area of encephalomalacia in the right parietal temporal lobe. 2. No CT evidence of acute cervical spine fracture or traumatic subluxation FINDINGS: HEAD: Status post right parietal craniotomy. Large geographic area of encephalomalacia indicating to the right lateral ventricle involving the right temporal parietal lobe. This unchanged since prior study. No acute intracranial hemorrhage or mass effect. No extra-axial collection. No mass effect. CERVICAL SPINE: There is no evidence of acute cervical spine fracture. Vertebral bodies remain normal in height. Cervical vertebrae have normal alignment. There is multilevel degenerative spondylosis of the cervical spine with disc height narrowing and endplate spurs and facet joint arthrosis No pre- or paravertebral soft tissue abnormality is identified. Emphysematous change of lung apices. CT/CT cervical spine wo con IMPRESSION: 1. No acute intracranial pathology. Stable old right parietal craniotomy and large geographic area of encephalomalacia in the right parietal temporal lobe. 2. No CT evidence of acute cervical spine fracture or traumatic subluxation Chest x-ray/right elbow x-ray and left hand and wrist x-ray: Attestation: I personally reviewed and interpreted this imaging study as follows: Radiologist's impression: FINDINGS: The cardiac and mediastinal contours are stable. The lungs are clear. There is no pleural effusion or pneumothorax. There is a battery in the left chest with lead extending toward the left lower neck. Bony structures are unremarkable. XR/XR chest 1V IMPRESSION: No evidence for acute disease in chest. ? FINDINGS: The bones and soft tissues are normal. No fracture or joint effusion. Alignment is anatomic. Joint spaces are maintained.? XR/XR elbow RT min 3V IMPRESSION: Normal right elbow. FINDINGS: Bone alignment is normal. No fracture or dislocation is seen. Joint spaces are normal. Soft tissues are normal.? XR/XR hand wrist LT IMPRESSION: Unremarkable exam.? ECG Data Attestation: I personally reviewed and interpreted this ECG as follows: ECG interpretation date: 05/10/21 ECG interpretation time: 04:16 Interpretation: Sinus bradycardia ventricular rate of 59 with a normal LA interval normal QRS duration normal QT/QTC interval. No acute ischemic change noted. Similar when compared to prior EKG 01/05/2021. Critical Care Time Critical Care Time Critical Care Time: Yes Total Critical Care Time: 60 Attestation: I personally attest to this time spent taking care of the patient Discharge Plan Discharge Clinical Impression: Epileptic seizure Patient Disposition: Home, Self-Care Instructions: Epilepsy (DC) Additional Instructions: You have pending lab results if any are abnormal you will be contacted. Continue taking her previously prescribed medications as previously prescribed. Return if any new or worsening symptoms. Follow up with her primary care provider. Prescriptions: No Action cholecalciferol (vitamin D3) 50 mcg (2,000 unit) capsule 50 mcg PO DAILY 0RF clobazam 10 mg tablet 10 mg PO BID 0RF topiramate 25 mg capsule, sprinkle 50 mg PO BID 0RF topiramate 200 mg tablet 200 mg PO BID 0RF Vimpat 100 mg tablet 200 mg PO BID 0RF lorazepam 1 mg tablet 1 mg PO DAILY PRN (Reason: agitation) 0RF aspirin [Adult Aspirin Regimen] 81 mg tablet,delayed release (DR/EC) 81 mg PO DAILY 0RF Referrals: Po,Ileana Dumont MD [Primary Care Provider] - 2 days Interventions: ED Discharge Assessment Last Done: 05/10/21 17:14 Discharge Date/Time: 05/10/21 17:15 Print Language: Belarusian
[2021-05-10 16:10] LABS: Magnesium 2.1 mg/dL (1.6-2.6)
[2021-05-10 16:15] LABS: COVID-19 Test Negative (Negative); IDNOW Serial# 9DD0AD1C
[2021-05-13 13:47] LABS: Topiramate 10.8 mcg/mL (see note)
[2021-05-14 05:21] LABS: Lamotrigine Lamictal <0.5 mcg/mL (4.0-18.0)
== END 2021-05-10 17:15 | disposition home or self-care (01) ==
PROVIDERS: Physician Assistant Medical; Emergency Provider Emergency Medicine; PCP Internal Medicine
DX: G40.909 Epilepsy, unspecified, not intractable, without status epilepticus (principal); S50.01XA Contusion of right elbow, initial encounter; S60.512A Abrasion of left hand, initial encounter; W19.XXXA Unspecified fall, initial encounter; R51.9 Headache, unspecified; F17.200 Nicotine dependence, unspecified, uncomplicated; Y93.9 Activity, unspecified; Y92.039 Unspecified place in apartment as the place of occurrence of the external cause; Y99.9 Unspecified external cause status; Z20.822 Contact with and (suspected) exposure to COVID-19; Z79.899 Other long term (current) drug therapy
CPT/HCPCS: 36415; 70450; 71045; 72125; 73080; 73110; 73130; 80053; 80175; 80201; 82550; 82607; 82746; 83735; 84439; 84443; 85025; 87635; 93005; 99284; 99291

== ENCOUNTER → 2021-12-24 10:24 | Outpatient (BNVA) | payer MEDICARE, MEDICAID, SELFPAY | PROVIDERS: PCP Internal Medicine; Referring Provider Internal Medicine; Visit Provider Surgery | DX: L98.9 Disorder of the skin and subcutaneous tissue, unspecified (principal) | CPT/HCPCS: 99202 ==

== ENCOUNTER 2022-02-22 10:08 | Outpatient (REF) | payer MEDICARE, MEDICAID, SELFPAY ==
[2022-02-22 10:19] VITALS: BP 118/62; PULSE 74; RESP 16; TEMP 36.2; O2SAT 100; BMI 26.6
[2022-02-22 10:54] VITALS: BP 114/61; PULSE 71; RESP 16; O2SAT 100
--- NOTE | 2022-02-22 10:55 | P.OP_ITS ---
Operative Note Operative Note Date of Service: 02/22/22 Narrative: Preoperative diagnosis: Sebaceous cyst right face Postoperative diagnosis: Sebaceous cyst right face Procedure: Excision of sebaceous cyst right face Surgeon: David Torre MD Online Community Manager: Kinza Perez PA-C Anesthesia: Bupivacaine 0.5% with epinephrine Indications for procedure: 56-year-old male patient presenting with a 1 cm sebaceous cyst which is gradually enlarging over the mid right face Operative findings: 1 cm sebaceous cyst of right mid face Specimen: Sebaceous cyst right face Estimated blood loss: 2 mL Complications: None Procedure details: Patient was brought to the minor surgery suite and placed in a supine position. After assuring informed consent and confirming the site of surgery the skin was prepped with Betadine and draped in a sterile fashion. Local was then infiltrated circumferentially around the lesion. Elliptical incision was then created a longitudinal fashion carried out through subcutaneous tissue down to the cyst wall. Sharp dissection was then used to to dissect the cyst from the surrounding subcutaneous tissue. Hemostasis was then assured using free tie of 4-0 Polysorb suture. Dermis was reapproximated using interrupted 4-0 Polysorb sutures. Skin was then closed using a running 5 0 nylon suture. Sterile dressings were then applied. The patient tolerated the procedure well. He was discharged to home in stable condition.
== END 2022-02-22 10:09 | disposition home or self-care (01) ==
LOC: HO.MS 10:08
PROVIDERS: PCP Internal Medicine; Visit Provider Surgery
PROC: (CPT 11441; principal; 2022-02-22 11:00)
DX: L72.0 Epidermal cyst (principal)
CPT/HCPCS: 11441; 88304

== ENCOUNTER → 2022-03-01 10:24 | Outpatient (BNVA) | payer MEDICARE, MEDICAID, SELFPAY | PROVIDERS: PCP Internal Medicine; Referring Provider Internal Medicine; Visit Provider Surgery | DX: Z48.817 Encounter for surgical aftercare following surgery on the skin and subcutaneous tissue (principal); Z87.2 Personal history of diseases of the skin and subcutaneous tissue | CPT/HCPCS: 99212 ==

== ENCOUNTER 2022-03-15 12:47 | Outpatient (REF) | payer MEDICARE, MEDICAID, SELFPAY ==
[2022-03-15 12:58] LABS: MANUAL DIFF FLAG NO
[2022-03-15 13:37] LABS: Basophils Percent Auto 0.8 % (0-2); Eosinophils Absolute Auto 0.1 X10*3/uL (0.0-0.4); Hematocrit 44.1 % (42.0-52.0); Hemoglobin 14.7 g/dl (14.0-18.0); Imm Gran Abs Auto 0.01 X10*3/uL (0.00-0.03); Imm Gran Pct Auto 0.2 % (0.0-0.4); Immature Retic Fraction 6.4 % (2.3-13.4); Lymphocytes Absolute Auto 1.3 X10*3/uL (1.2-4.9); Lymphocytes Percent Auto 25.1 % (20-40); Mean Corpuscular HGB Conc 33.3 g/dl (31.0-36.0); Mean Corpuscular Hemoglobin 30.6 pg (27.0-33.0); Mean Corpuscular Volume 91.7 fL (80.0-98.0); Mean Platelet Volume 11.3 fL (9.4-12.4); Monocytes Absolute Auto 0.5 X10*3/uL (0.1-1.2); Monocytes Percent Auto 10.2 % (2-11); Neutrophils Absolute Auto 3.1 x10*3/uL (2.0-8.3); Neutrophils Percent Auto 62.7 % (45-73); Platelet Count 121 X10*3/uL (160-400); Red Blood Count 4.81 X10*6/uL (4.60-5.80); Red Cell Distribution Width 13.2 % (11.0-16.0); Retic HGB Equivalent 36.4 pg (30.0-35.0); Reticulocyte Percent 1.1 % (0.5-1.8); Reticulocytes Absolute 0.055 X10*6/uL (0.026-0.095)
[2022-03-15 14:02] LABS: Appearance Urine Turbid; Color Urine Yellow; Glucose Urine UA Negative (Negative); Leukocyte Esterase Urine Negative (Negative); Nitrite Urine Negative (Negative); PH 8.5 (5.0-9.0); Urine Blood Negative (Negative); Urine Ketones Negative (Negative); Urine Protein Negative (Neg-Trace)
[2022-03-15 14:04] LABS: Bacteria Urine None Seen (None Seen); Hyaline Casts Urine 0-2 /LPF (0-2); RBC Urine 0-2 /HPF (0-2); Squamous Epithelial Cell Urine 0-2 /HPF (0-2); WBC Urine 0-5 /HPF (0-5)
[2022-03-15 15:55] LABS: Alanine Aminotransferase 21 U/L (0-40); Albumin Level 4.4 g/dL (3.5-5.0); Alkaline Phosphatase 97 U/L (39-117); Anion Gap 10 (12-20); Aspartate Amino Transferase 18 U/L (5-37); Bilirubin Total 0.3 mg/dL (0.0-1.0); Blood Urea Nitrogen 15 mg/dL (9-16); Calcium 9.3 mg/dL (8.4-10.2); Carbon Dioxide 27 mmol/L (22-29); Chloride 109 mmol/L (96-108); Cholesterol 165 mg/dL; Estimated Glomerular Filt Rate > 60; Ferritin 131 ng/mL (20-250); Free T4 (Free Thyroxine) 1.08 ng/dL (0.71-1.85); Glucose Random 79 mg/dL (60-115); HDL Cholesterol 38 mg/dL; Iron 110 mcg/dL (45-160); LDL Cholesterol Calculated 109 mg/dl; Percent Iron Saturation 47 % (15-50); Potassium 4.1 mmol/L (3.3-5.1); Prostate Specific Antigen Scr 0.21 ng/mL (<0.05-4.0); Sodium 142 mmol/L (135-145); Total Iron Binding Capacity 234 mcg/dL (228-428); Total Protein 6.9 g/dL (6.5-8.0); Triglycerides 90 mg/dL; Unsaturated Iron Binding 124 ug/dL
[2022-03-15 16:09] LABS: Estimated Average Glucose 108 mg/dL; Hemoglobin A1c % 5.4 %
[2022-03-15 17:10] LABS: Folate > 20.0 ng/mL (> or = 4.0); Vitamin B12 330 pg/mL (200-900)
== END 2022-03-15 12:48 | disposition home or self-care (01) ==
LOC: HO.LAB 12:47
PROVIDERS: PCP Internal Medicine; Visit Provider Internal Medicine
DX: G40.909 Epilepsy, unspecified, not intractable, without status epilepticus (principal); E78.00 Pure hypercholesterolemia, unspecified; D64.9 Anemia, unspecified; F33.9 Major depressive disorder, recurrent, unspecified; Z12.5 Encounter for screening for malignant neoplasm of prostate; R73.02 Impaired glucose tolerance (oral)
CPT/HCPCS: 36415; 80053; 80061; 81001; 82607; 82728; 82746; 83036; 83540; 84153; 84439; 84443; 85025; 85045

== ENCOUNTER 2022-09-15 14:00 | Outpatient (RCR) | payer MEDICARE, MEDICAID, SELFPAY ==
--- NOTE | 2021-09-16 14:48 | HE.ONCSEC ---
PATIENT DID NOT ANSWER MY REMINDER CALL FOR HIS APPT 09/17/21 , I LEFT A DETAILED VOICEMAIL OF PATIENT'S APPT DATE AND TIME & CALL BACK # IN CASE IF PT HAS ANY QUESTIONS .
[2021-09-17 15:37] VITALS: BP 137/65; PULSE 77; RESP 22; TEMP 37.1; O2SAT 97
--- NOTE | 2021-09-17 15:41 | PM.HEMONCCN ---
Subjective - Subjective Chief complaint: consult for: History of DVT. Patient: new to practice Consult date: 09/17/21 Requesting Physician: Guilherme. Primary Care Provider: Ileana Vanegas MD Medical Summary: DIAGNOSES: 1. Left upper extremity deep veinous thrombosis. 2. Left axillary vein thrombosis. 3. Question of pleural effusion. 4. History of positive lupus anticoagulant and elevated homocysteine levels. These are normal now. 5. Right apical pulmonary nodules, stable. 6. Thrombocytopenia. 7. Leukopenia. CURRENT THERAPY: 1. Baby aspirin. 2. Coumadin, stopped in October 2012. HPI - Consult Narrative Reason for consult: Consult for: History of DVT. Narrative: Adair Tobias is a pleasant 56 year old gentleman, he was last seen here back in 11/02/2016. Patient has epilepsy. Has an implanted left vagal nerve stimulator on his chest. He had the Battrey changed in August of 2013. It has since . As a result he has had a recent increase in seizure frequency and magnitude with resulting fall and some serious bruising in the left arm. He has been scheduled for surgery to switch the stimulator on 09/21. He has been referred here for preop clearance. He has been maintained on a baby aspirin since his history of DVT. PAST MEDICAL HISTORY: The past medical history is significant for: 1) A history of Seizure Disorder. He had a brain tumor removed in 1984 at [facility] and subsequently, he had seizures and sees Dr. Oleary. He is currently under the care of Dr. Luther. He also underwent a procedure three years later to control the seizure activity. He has had had other fractures including fractures of both clavicles, left wrist and ankle sprain. FAMILY HISTORY: His grandmother had a stroke. 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 He smokes a pack a day for 20 years. He used to drink between the ages of 22 and 23 but then quit. He is not and has no children. ROS: He denies much fatigability prior to this. Since the seizures, he has been falling. He has had left rib pain. He grades it at 8-9 on 1-10 scale. He does not have anything for the pain. He is unable to sleep due to the pain. Denies fever nor chills. Appetite is good. His weight is stable. He denies headaches however he does get dizziness. The pain is localized to the left upper chest area. Sometimes he gets short of breath due to the pain. He denies any abdominal pain nausea vomiting heartburn indigestion. Bowels are working without any gross blood in it. No dysuria or hematuria. He does have pain in his back and chest. His legs are weak. He is in a wheelchair for the past 2 days. He is depressed. He has abrasions on his knees from trying to get in the bus. Review of Systems - Constitutional Reports no additional constitutional complaints, Reports fatigue, Denies fever(s), Reports weakness, Denies weight loss - Eyes Reports no additional eye complaints - ENT Reports no additional ear, nose, mouth, and throat complaints - Cardiovascular Reports no additional cardiovascular complaints, Reports chest pain - Respiratory Reports no additional respiratory complaints - Gastrointestinal Reports no additional gastrointestinal complaints - Genitourinary Genitourinary: Reports no additional male genitourinary complaints - Musculoskeletal Reports no additional musculoskeletal complaints - Integumentary/Breasts Skin/Breast: Reports no additional skin complaints - Neurologic Reports no additional neurologic complaints - Psychiatric Reports no additional psychiatric complaints - Endocrine Reports no additional endocrine complaints - Hematologic/Lymphatic Reports no additional hematologic/lymphatic complaints - Allergic/Immunologic Reports no additional allergic/immunologic complaints Oncology Screenings - ECOG Performance Status ECOG Performance Status: 0 [facility] Medical History: Medical History (Last Updated 08/18/21 @ 13:25 by Ileana Vanegas MD) Carpal tunnel syndrome, left Closed left arm fracture 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 Degenerative disc disease, cervical History of DVT (deep vein thrombosis) Lupus anticoagulant positive Pulmonary nodule Thrombocytopenia Ulnar neuropathy Functional capacity: wheelchair bound Patient : No Family History: Family History (Last Reviewed 05/10/21 @ 16:12 by IAN Leos) Father CVD (cardiovascular disease) Cancer of spine Mother Lung cancer Maternal Grandfather Gastric cancer Paternal Grandfather Colon cancer Paternal Aunt Breast cancer Surgical History: Surgical History (Last Reviewed 05/10/21 @ 16:12 by IAN Leos) History of surgery History of surgery Social History: Social History (Last Reviewed 05/10/21 @ 16:12 by IAN Leos) [facility] History[facility] Tobacco History: Patient Tobacco Use Status: Current everyday Tobacco Tobacco use type: Cigarette e-Cigarette/Vaping Use: Never Used Second Hand Smoke Exposure: No Nutrition Assessment: Patient : No Occupation Assessmet: service: No Current occupational status: disabled Home Medications and Allergies Home Medications Medication Instructions Recorded Confirmed Type cholecalciferol (vitamin D3) 50 50 mcg PO DAILY 12/23/20 09/17/21 History mcg (2,000 unit) capsule clobazam 10 mg tablet 10 mg PO BID 12/23/20 09/17/21 History topiramate 200 mg tablet 200 mg PO BID 12/23/20 09/17/21 History topiramate 25 mg sprinkle capsule 50 mg PO BID 12/23/20 09/17/21 History aspirin 81 mg tablet,delayed 81 mg PO DAILY 02/22/21 09/17/21 History release (Adult Aspirin Regimen) lorazepam 1 mg tablet 1 mg PO DAILY PRN agitation 02/22/21 09/17/21 History Allergies Allergy/AdvReac Type Severity Reaction Status Date / Time No Known Allergies Allergy Verified 08/18/21 13:03 Physical Exam Vital signs: Vital Signs Temp 98.7 F 09/17/21 15:37 Pulse 77 09/17/21 15:37 Resp 22 H 09/17/21 15:37 BP 137/65 09/17/21 15:37 Pulse Ox 97 09/17/21 15:37 O2 Del Method 09/17/21 15:37 - Constitutional Present: moderate distress - Routine HEENT Exam Head: Present: normal inspection ENT: Present: mucous membranes moist - Routine Neck Exam Present: supple - Routine Respiratory Exam Present: CTAB - Routine Cardiovascular Exam Cardiovascular: Present: S1, S2 - Routine Abdominal Exam Present: nontender. Absent: organomegaly - Routine Extremities Exam Present: nontender Hem/Onc Consult Result - Labs CBC & Chem 7: 09/17/21 16:09 09/17/21 16:09 Assessment and Plan Patient Active problem list reviewed?: Yes (1) Left upper extremity deep vein thrombosis Status: Acute Assessment and plan: DATABASE; PT 14.2, PTT 31.5. D Dimer: 3106. 56 year-old gentleman, with previous history of left Axillary Vein Thrombosis. He has underlying lupus anticoagulant. Elevated homocysteine level, but these are normal now. He has a history of thrombocytopenia, and leukopenia. He completed the Coumadin course back in October 2012. Currently he is just on a baby aspirin. He had been doing quite well. However his left vagal stimulator battery on 08/30. Since then he has had increased seizure frequency and severity. He did get injured. The plan is to have the stimulator battery switched over on 09/[address] Yeager. PLAN: He will discontinue the baby aspirin therapy. I gave him a prescription for oxycodone to take for the left rib pain. He likely has rib fractures related to his seizures. I advised him to call in case he has any questions or concerns. He will return in 1 year for a follow-up. I wish him the best of luck. Thank you, CC: Dr. Vanegas. Dr. Gilles Yeager. Dr. Luther. - Time Spent With Patient Time Spent with Patient (in minutes): 30
--- NOTE | 2021-09-17 15:52 | MHC.HEMONC ---
Pt here for hem follow up with Dr Ken for history of DVT. Pt unable to stand for weight. Clinical summary updated by nurse. Provider into see pt. Discharge packet given.
--- NOTE | 2021-09-17 16:07 | MHC.HEMONCMA ---
patient seen today for new consult with provider previous DVT in left UE,labs, VSS.
[2021-09-17 16:14] LABS: Basophils Percent Auto 0.2 % (0-2); Imm Gran Abs Auto 0.03 X10*3/uL (0.00-0.03); Imm Gran Pct Auto 0.3 % (0.0-0.4); PLT CLUMP 1; SCAN SMEAR FLAG 1
[2021-09-17 16:15] LABS: Hematocrit 38.1 % (42.0-52.0); Hemoglobin 12.5 g/dl (14.0-18.0); Lymphocytes Absolute Auto 1.1 X10*3/uL (1.2-4.9); Lymphocytes Percent Auto 12.2 % (20-40); Mean Corpuscular HGB Conc 32.8 g/dl (31.0-36.0); Mean Corpuscular Hemoglobin 30.1 pg (27.0-33.0); Mean Corpuscular Volume 91.8 fL (80.0-98.0); Mean Platelet Volume 11.3 fL (9.4-12.4); Monocytes Absolute Auto 0.9 X10*3/uL (0.1-1.2); Monocytes Percent Auto 10.3 % (2-11); Neutrophils Absolute Auto 6.7 x10*3/uL (2.0-8.3); Red Blood Count 4.15 X10*6/uL (4.60-5.80); Red Cell Distribution Width 12.8 % (11.0-16.0)
[2021-09-17 16:20] LABS: Platelet Count 101 X10*3/uL (160-400); White Blood Count 8.7 X10*3/uL (4.8-10.8)
[2021-09-17 16:22] LABS: MANUAL DIFF FLAG NO
[2021-09-17 16:25] LABS: INTERNATIONAL NORM RATIO 1.2 (0.9-1.1); Prothrombin Time 14.2 SEC (9.9-13.0)
[2021-09-17 16:27] LABS: D Dimer High Sensitivity 3106 NG/ML
[2021-09-17 16:28] LABS: Partial Thromboplastin Time 31.5 SEC (24.1-38.0)
[2021-09-17 16:42] LABS: Alanine Aminotransferase 24 U/L (0-40); Albumin Level 4.1 g/dL (3.5-5.0); Alkaline Phosphatase 77 U/L (39-117); Anion Gap 12 (12-20); Aspartate Amino Transferase 26 U/L (5-37); Bilirubin Total 0.6 mg/dL (0.0-1.0); Blood Urea Nitrogen 17 mg/dL (9-16); Carbon Dioxide 22 mmol/L (22-29); Chloride 106 mmol/L (96-108); Estimated Glomerular Filt Rate > 60; Glucose Random 127 mg/dL (60-115); Potassium 4.1 mmol/L (3.3-5.1); Sodium 136 mmol/L (135-145); Total Protein 6.9 g/dL (6.5-8.0)
--- NOTE | 2021-09-20 14:53 | MHC.HEMONC ---
Lab results faxed to Dr Greco's office
[2022-09-15 14:15] VITALS: BP 104/61; PULSE 54; O2SAT 97; BMI 27.4
--- NOTE | 2022-09-15 14:24 | PM.HEMONCPN ---
Medical Summary - Medical Summary Date of Service: 09/15/22 Chief complaint: Follow-up for: 1. DVT. 2. Leukopenia. Primary Care Provider: Ileana Vanegas MD Medical Summary: DIAGNOSES: 1. Left upper extremity deep veinous thrombosis. 2. Left axillary vein thrombosis. 3. Question of pleural effusion. 4. History of positive lupus anticoagulant and elevated homocysteine levels. These are normal now. 5. Right apical pulmonary nodules, stable. 6. Thrombocytopenia. 7. Leukopenia. CURRENT THERAPY: 1. Baby aspirin. 2. Coumadin, stopped in October 2012. Interval History Interval history: Adair Tobias is a pleasant 57 year old gentleman, he was last seen here back in August of last year. He is doing well now however, while walking home from the store he had a grand mal seizure. He woke up at [facility]. He was treated there. Then he was stuck several times to start an IV. He denies much fatigability prior to this. Denies fever nor chills. He denies headaches however he does get dizziness. The pain is localized to the left upper chest area. Sometimes he gets short of breath due to the pain. He denies any abdominal pain nausea vomiting heartburn indigestion. Bowels are working without any gross blood in it. Appetite is good. His weight is stable. No dysuria or hematuria. He denies focal weakness. He is in good spirits. Rest of the review of systems is unremarkable. He has been maintained on a baby aspirin since his history of DVT. PAST MEDICAL HISTORY: The past medical history is significant for: 1) A history of Seizure Disorder. He had a brain tumor removed in 1984 at [facility] and subsequently, he had seizures and sees Dr. Oleary. He is currently under the care of Dr. Luther. He also underwent a procedure three years later to control the seizure activity. He has had had other fractures including fractures of both clavicles, left wrist and ankle sprain. Patient has epilepsy. Has an implanted left vagal nerve stimulator on his chest. 09/15: Since the seizures, he has been falling. He has had left rib pain. He grades it at 8-9 on 1-10 scale. He does not have anything for the pain. He is unable to sleep due to the pain. FAMILY HISTORY: His grandmother had a stroke. 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 He smokes a pack a day for 20 years. He used to drink between the ages of 22 and 23 but then quit. He is not and has no children. Review of Systems - Constitutional Reports no additional constitutional complaints, Denies anorexia, Reports body aches, Reports fatigue, Denies fever(s), Reports lack of energy, Reports malaise, Reports weight loss - Eyes Reports no additional eye complaints - ENT Reports no additional ear, nose, mouth, and throat complaints - Cardiovascular Reports no additional cardiovascular complaints - Respiratory Reports no additional respiratory complaints - Gastrointestinal Reports no additional gastrointestinal complaints - Genitourinary Genitourinary: Reports no additional male genitourinary complaints - Musculoskeletal Reports no additional musculoskeletal complaints - Integumentary/Breasts Skin/Breast: Reports no additional skin complaints - Neurologic Reports no additional neurologic complaints, Reports weakness - Psychiatric Reports no additional psychiatric complaints - Endocrine Reports no additional endocrine complaints - Hematologic/Lymphatic Reports no additional hematologic/lymphatic complaints - Allergic/Immunologic Reports no additional allergic/immunologic complaints COUNT INCLUDES [facility] Medical History: Medical History (Last Reviewed 09/15/22 @ 14:18 by Vannessa Yeager) Carpal tunnel syndrome, left Change in stool Closed left arm fracture 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 Degenerative disc disease, cervical Elbow pain, right Face lesion GERD (gastroesophageal reflux disease) History of DVT (deep vein thrombosis) Knee pain, right Lupus anticoagulant positive Pulmonary nodule Seizure disorder Tarsal tunnel syndrome of left side Thrombocytopenia Tobacco abuse Ulnar neuropathy Functional capacity: independent ambulation Patient : No Family History: Family History (Last Reviewed 09/15/22 @ 14:18 by Vannessa Yeager) Father CVD (cardiovascular disease) Cancer of spine Mother Lung cancer Maternal Grandfather Gastric cancer Paternal Grandfather Colon cancer Paternal Aunt Breast cancer Surgical History: Surgical History (Last Reviewed 09/15/22 @ 14:18 by Vannessa Yeager) H/O excision of mass Onset Date: 02/22/22 History of surgery History of surgery Social History: Social History (Last Reviewed 09/15/22 @ 14:18 by Vannessa Yeager) [facility] History[facility] Tobacco History: Patient Tobacco Use Status: Current everyday Tobacco Tobacco use type: Cigarette Cigarette Packs Per Day: 0.5 e-Cigarette/Vaping Use: Never Used Second Hand Smoke Exposure: Yes Nutrition Assessment: Patient : No Occupation Assessmet: service: No Current occupational status: disabled Oncology Screenings - ECOG Performance Status ECOG Performance Status: 0 Home Medications and Allergies Home Medications Medication Instructions Recorded Confirmed Type cholecalciferol (vitamin D3) 50 50 mcg PO DAILY 12/23/20 09/15/22 History mcg (2,000 unit) capsule clobazam 10 mg tablet 10 mg PO BID 12/23/20 09/15/22 History topiramate 25 mg sprinkle capsule 50 mg PO BID 12/23/20 09/15/22 History aspirin 81 mg tablet,delayed 81 mg PO DAILY 02/22/21 09/15/22 History release (Adult Aspirin Regimen) lorazepam 1 mg tablet 1 mg PO DAILY PRN agitation 02/22/21 09/15/22 History topiramate 200 mg tablet 400 mg PO BID 09/12/22 09/15/22 History vit C-vit H-ionbwa-hgangvbo-omega 100 cap PO DAILY 09/12/22 09/15/22 History 3 100 mg-15 unit-2 mg-100 mg capsule vitamin A-vitamin C-vit E-min 1 tab PO DAILY 09/15/22 09/15/22 History tablet Allergies Allergy/AdvReac Type Severity Reaction Status Date / Time No Known Allergies Allergy Verified 09/15/22 14:18 Exam Vital signs: Vital Signs Temp 98.7 F 09/17/21 15:37 Pulse 54 09/15/22 14:15 Resp 22 H 09/17/21 15:37 BP 104/61 09/15/22 14:15 Pulse Ox 97 09/15/22 14:15 O2 Del Method Room Air 09/15/22 14:15 Intake & Output 09/14/22 09/15/22 09/15/22 18:59 06:59 18:59 Other: Weight 86.6 kg [place] Weight in Grams 80969 Weight 86.6 kg BMI result Body Mass Index 27.4 - Constitutional Present: moderate distress - Routine HEENT Exam Head: Present: normal inspection Eye: Present: normal appearance ENT: Present: mucous membranes moist - Routine Neck Exam Present: full ROM - Routine Respiratory Exam Present: CTAB - Routine Cardiovascular Exam Cardiovascular: Present: S1, S2 - Routine Abdominal Exam Present: nontender. Absent: organomegaly - Routine Extremities Exam Present: nontender - Routine Back/Spine/Pelvis Exam Back/Spine: Present: full ROM - Routine Skin Exam Present: intact - Routine Neurological Exam Present: alert, oriented X3 - Routine Psychiatric Exam Present: normal affect Data - Labs CBC & Chem 7: 09/15/22 14:45 09/15/22 14:45 Labs: 09/17/21 16:09 Complete Blood Count Auto Diff Stat Comprehensive Met. Panel Stat D Dimer High Sensitivity Stat PTT [Partial Thromboplastin Time] Stat Prothrombin Time INR Stat Laboratory Last Values WBC 8.7 X10*3/uL (4.8-10.8) 09/17/21 16:09 RBC 4.15 X10*6/uL (4.60-5.80) L 09/17/21 16:09 Hgb 12.5 g/dl (14.0-18.0) L 09/17/21 16:09 Hct 38.1 % (42.0-52.0) L 09/17/21 16:09 MCV 91.8 fL (80.0-98.0) 09/17/21 16:09 MCH 30.1 pg (27.0-33.0) 09/17/21 16:09 MCHC 32.8 g/dl (31.0-36.0) 09/17/21 16:09 RDW 12.8 % (11.0-16.0) 09/17/21 16:09 Plt Count 101 X10*3/uL (160-400) L 09/17/21 16:09 MPV 11.3 fL (9.4-12.4) 09/17/21 16:09 Immature Gran % (Auto) 0.3 % (0.0-0.4) 09/17/21 16:09 Neut % (Auto) 77.0 % (45-73) H 09/17/21 16:09 Lymph % (Auto) 12.2 % (20-40) L 09/17/21 16:09 [place] % (Auto) 10.3 % (2-11) 09/17/21 16:09 Eos % (Auto) 0.0 % (0-4) 09/17/21 16:09 Baso % (Auto) 0.2 % (0-2) 09/17/21 16:09 Lymph # (Auto) 1.1 X10*3/uL (1.2-4.9) L 09/17/21 16:09 [place] # (Auto) 0.9 X10*3/uL (0.1-1.2) 09/17/21 16:09 Eos # (Auto) 0.0 X10*3/uL (0.0-0.4) 09/17/21 16:09 Baso # (Auto) 0.0 X10*3/uL (0.0-0.2) 09/17/21 16:09 Abs Immat Gran (auto) 0.03 X10*3/uL (0.00-0.03) 09/17/21 16:09 Absolute Neuts (auto) 6.7 x10*3/uL (2.0-8.3) 09/17/21 16:09 Absolute Nucleated RBC 0.000 X10*3/uL (0.0-0.012) 09/17/21 16:09 Nucleated RBC % (auto) 0.0 /100WBC (0.0-0.2) 09/17/21 16:09 PT 14.2 SEC (9.9-13.0) H 09/17/21 16:09 INR 1.2 (0.9-1.1) H 09/17/21 16:09 APTT 31.5 SEC (24.1-38.0) 09/17/21 16:09 D-Dimer High Sensitivty 3106 NG/ML 09/17/21 16:09 Sodium 136 mmol/L (135-145) 09/17/21 16:09 Potassium 4.1 mmol/L (3.3-5.1) 09/17/21 16:09 Chloride 106 mmol/L (96-108) 09/17/21 16:09 Carbon Dioxide 22 mmol/L (22-29) 09/17/21 16:09 Anion Gap 12 (12-20) 09/17/21 16:09 BUN 17 mg/dL (9-16) H 09/17/21 16:09 Creatinine 0.90 mg/dL (0.5-1.4) 09/17/21 16:09 Estim Creat Clear Calc TNP 09/17/21 16:09 Estimated GFR > 60 09/17/21 16:09 Random Glucose 127 mg/dL (60-115) H 09/17/21 16:09 Calcium 9.0 mg/dL (8.4-10.2) D 09/17/21 16:09 Total Bilirubin 0.6 mg/dL (0.0-1.0) 09/17/21 16:09 AST 26 U/L (5-37) 09/17/21 16:09 ALT 24 U/L (0-40) 09/17/21 16:09 Alkaline Phosphatase 77 U/L (39-117) D 09/17/21 16:09 Total Protein 6.9 g/dL (6.5-8.0) 09/17/21 16:09 Albumin 4.1 g/dL (3.5-5.0) 09/17/21 16:09 Assessment and Plan Patient Active problem list reviewed?: Yes (1) Left upper extremity deep vein thrombosis Problem details: No anticoagulant due to history of seizures Status: Acute Assessment and plan: 57 year-old gentleman, with previous history of left Axillary Vein Thrombosis. He had underlying lupus anticoagulant. Elevated homocysteine level.,These are normal now. He has a history of thrombocytopenia, and leukopenia. He completed the Coumadin course back in October 2012. Currently he is just on a baby aspirin. He had a seizure last . He was taken to [facility] where he was treated. He is doing quite well. D-dimer: 282. PLAN: He will continue on the baby aspirin therapy. He will return in 1 year for a follow-up. I advised him to call in case he has any questions or concerns. Thank you, CC: Dr. Vanegas. Dr. Gilles Yeager. Dr. Luther. - Time Spent With Patient Time Spent with Patient (in minutes): 25
[2022-09-15 14:49] LABS: MANUAL DIFF FLAG NO
--- NOTE | 2022-09-15 14:51 | MHC.HEMONCMA ---
patient seen today for DVT, vss, labs, following up with provider in 1 year
[2022-09-15 15:18] LABS: Basophils Percent Auto 0.9 % (0-2); Eosinophils Absolute Auto 0.1 X10*3/uL (0.0-0.4); Hematocrit 42.1 % (42.0-52.0); Hemoglobin 13.8 g/dl (14.0-18.0); Imm Gran Abs Auto 0.01 X10*3/uL (0.00-0.03); Imm Gran Pct Auto 0.2 % (0.0-0.4); Lymphocytes Absolute Auto 1.5 X10*3/uL (1.2-4.9); Lymphocytes Percent Auto 32.9 % (20-40); Mean Corpuscular HGB Conc 32.8 g/dl (31.0-36.0); Mean Corpuscular Hemoglobin 30.9 pg (27.0-33.0); Mean Corpuscular Volume 94.2 fL (80.0-98.0); Mean Platelet Volume 11.8 fL (9.4-12.4); Monocytes Absolute Auto 0.4 X10*3/uL (0.1-1.2); Monocytes Percent Auto 9.7 % (2-11); Neutrophils Absolute Auto 2.4 x10*3/uL (2.0-8.3); Neutrophils Percent Auto 54.3 % (45-73); Platelet Count 106 X10*3/uL (160-400); Red Blood Count 4.47 X10*6/uL (4.60-5.80); Red Cell Distribution Width 13.2 % (11.0-16.0); White Blood Count 4.4 X10*3/uL (4.8-10.8)
[2022-09-15 15:22] LABS: D Dimer High Sensitivity 282 NG/ML
[2022-09-15 15:33] LABS: Alanine Aminotransferase 16 U/L (0-40); Albumin Level 4.4 g/dL (3.5-5.0); Alkaline Phosphatase 89 U/L (39-117); Anion Gap 7 (12-20); Aspartate Amino Transferase 19 U/L (5-37); Bilirubin Total 0.5 mg/dL (0.0-1.0); Blood Urea Nitrogen 13 mg/dL (9-16); Calcium 8.9 mg/dL (8.4-10.2); Carbon Dioxide 24 mmol/L (22-29); Chloride 113 mmol/L (96-108); Creatinine Clr Calc Pharmacy 105.1; Estimated Glomerular Filt Rate > 60; Glucose Random 88 mg/dL (60-115); Potassium 4.3 mmol/L (3.3-5.1); Sodium 140 mmol/L (135-145)
--- NOTE | 2022-09-16 09:31 | MHC.HEMONC ---
Dr. Ken notified of DDIMER 282.
== END 2023-01-02 | disposition home or self-care (01) ==
LOC: HO.ONC 14:00
PROVIDERS: PCP Internal Medicine; Visit Provider Internal Medicine Medical Oncology
DX: R76.0 Raised antibody titer (principal); Z86.718 Personal history of other venous thrombosis and embolism; Z79.82 Long term (current) use of aspirin
CPT/HCPCS: 36415; 80053; 85025; 85379; 85610; 85730; 99204; 99213

== ENCOUNTER 2022-12-24 17:01 | Emergency (ER) | payer MEDICARE, MEDICAID, SELFPAY ==
--- NOTE | ~2022-12-24 | CT_ITS ---
EXAMINATION: CT brain, CT cervical spine and CT facial bones without IV contrast. CLINICAL INDICATIONS: Neck injury, facial and head trauma. COMPARISON: CT brain, CT cervical spine 05/10/2021. TECHNIQUE: 5 mm thin axial and reformatted 2 mm thin sagittal and coronal images of brain were obtained. Axial 3 mm thin and reformatted: 2 mm thin sagittal and coronal images of cervical spine were obtained. Lastly 3 mm thin and reformatted 1.5 mm thin sagittal and coronal images of facial bones were obtained. DLP 1510. This CT examination was performed using dose optimization technique as appropriate, variously including the following: Automated exposure control Adjustment of MA and/or KV according to patient size(this includes techniques or standardized protocols for targeted exams where dose is matched to indication/reason for exam; extremities or head. Use of iterative reconstruction techniques. FINDINGS: Brain: There is a right parietal and temporal lobe encephalomalacia likely insult and/or postsurgical changes. There is a right parietal temporal craniotomy noted. There is no acute intra-axial, extra-axial bleed, collection, masses or midline shift. The lateral ventricles are symmetrical except for extra-axial dilatation of right occipital horn lateral ventricle. No abnormality seen in the posterior fossa. Bone windows reveal no calvarial abnormality. No scalp soft tissue abnormality seen either. The paranasal sinuses and mastoid air cells are well-aerated. Cervical spine: There is mild straightening of cervical lordosis there is loss of C3-C4, C4-C5, C5-C6 and C6-C7 disc heights. There is moderate ventral epidural and posterior spondylosis. The craniovertebral junction and C1-C2 alignment is normal. No visible acute fracture, dislocation or subluxation seen. The prevertebral and paravertebral soft tissues are normal. Facial bones: The paranasal sinuses are well-aerated with minimal mucoperiosteal thickening bilateral maxillary sinuses. The bony sinus casarez are intact. The lamina papyracea and cribriform plate is normal. 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 Bilateral nasal bones and maxillofacial bones are intact without any evidence of fracture. Bilateral TM joints are symmetric and normal. Visualized mandible is intact. There is soft tissue abrasion along the anterior nasal skin. CT/CT cervical spine wo IV con IMPRESSION: 1. No acute intracranial process seen. 2. There is right parietal temporal lobe encephalomalacia likely old insult and/or postsurgical changes. There is right parietal-temporal craniotomy. 3. There is no acute fracture, dislocation or subluxation seen in cervical spine. There are degenerative disc changes with spondylosis. 4. There is no maxillofacial, nasal or mandibular fracture. 5. There is soft tissue abrasion along the anterior nasal skin. .
[2022-12-24 17:05] VITALS: BP 105/67; PULSE 79; O2SAT 99
--- NOTE | 2022-12-24 17:15 | ECG_ITS ---
Test Reason : SEIZURE Blood Pressure : / mmHG Vent. Rate : 065 BPM Atrial Rate : 065 BPM P-R Int : 146 ms QRS Dur : 096 ms QT Int : 394 ms P-R-T Axes : 081 086 057 degrees QTc Int : 409 ms Normal sinus rhythm Normal ECG When compared with ECG of 10-MAY-2021 16:16, No significant change was found Referred By: Cathy Aguilar Electronically Signed By:KYLE PANTOJA
[2022-12-24 17:16] VITALS: BP 125/71; RESP 18; TEMP 36.9; O2SAT 100; BMI 26.1
--- NOTE | 2022-12-24 17:23 | ED_ITS ---
HPI - Seizure General Chief Complaint: Seizure Stated Complaint: Fall w/ head strike after Sz. Time Seen by Provider: 12/24/22 17:12 Source: patient and old records reviewed Limitations: no limitations History of Present Illness HPI Narrative: 57 yo male with PMH of depression, anemia, GERD, DVT but uses aspirin given hx of frequent seizures takes vimpat - found down outside by neighbors he has trauma to this nose, mouth, face. He doesn't remember having an aura but trauma to face suggest seizure activity. He is not on thinners. He has pain in the face. He did have LOC. Patient cannot remember if he took his Vimpat this AM states he takes 300mg at night. He feels shaky and cold right now. MD complaint: possible seizure Onset (ago): minute(s) (prior to arrival ) Description of Episode: loss of consciousness Witnessed: No Trauma: Yes Seizure History: Yes (age 19) Place: Outdoors Possible Precipitating Event: none Associated symptoms: denies other symptoms Treatments prior to arrival: none Related Data Home Medications Medication Instructions Recorded Confirmed cholecalciferol (vitamin D3) 50 50 mcg PO DAILY 12/23/20 09/15/22 mcg (2,000 unit) capsule clobazam 10 mg tablet 10 mg PO BID 12/23/20 09/15/22 topiramate 25 mg sprinkle capsule 50 mg PO BID 12/23/20 09/15/22 aspirin 81 mg tablet,delayed 81 mg PO DAILY 02/22/21 09/15/22 release (Adult Aspirin Regimen) lorazepam 1 mg tablet 1 mg PO DAILY PRN agitation 02/22/21 09/15/22 topiramate 200 mg tablet 400 mg PO BID 09/12/22 09/15/22 vit C-vit X-dlnnfz-[id number]-omega 100 cap PO DAILY 09/12/22 09/15/22 3 100 mg-15 unit-2 mg-100 mg capsule vitamin A-vitamin C-vit E-min 1 tab PO DAILY 09/15/22 09/15/22 tablet Previous Rx's Medication Instructions Recorded lacosamide 150 mg tablet (Vimpat) 300 mg (2 x 150 mg) PO BID 30 days 05/17/21 #120 tabs Allergies Allergy/AdvReac Type Severity Reaction Status Date / Time No Known Allergies Allergy Verified 09/15/22 14:18 Review of Systems 2 Review of Systems: ROS unable to be obtained due to confusion [facility] Past Medical History Source: old records reviewed Medical History Face lesion Elbow pain, right Knee pain, right Change in stool Closed left arm fracture Degenerative disc disease, cervical Ulnar neuropathy Carpal tunnel syndrome, left GERD (gastroesophageal reflux disease) Tarsal tunnel syndrome of left side 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 Thrombocytopenia Lupus anticoagulant positive History of DVT (deep vein thrombosis) Pulmonary nodule Seizure disorder Tobacco abuse Surgical History H/O excision of mass (02/22/22) History of surgery History of surgery Family History Family History Father CVD (cardiovascular disease) Cancer of spine Mother Lung cancer Maternal Grandfather Gastric cancer Paternal Grandfather Colon cancer Paternal Aunt Breast cancer Social History Social History Housing: Condominium Alcohol intake: never Patient Tobacco Use Status: Current everyday Tobacco user Tobacco use type: Cigarette Cigarette Packs Per Day: 0.5 Cigarettes Per Day: 10 Smoked in Last 30 Days: No e-Cigarette/Vaping Use: Never Used Second Hand Smoke Exposure: Yes Use of substances other than those prescribed or required for medical reasons: No Advance Directives: No Advance Directives Information Provided: No service: No Current occupational status: disabled Cognitive needs: No Hearing needs: No Vision needs: Yes (glasses) Physical Exam 2 Vital Signs: Vital Signs: Last Vital Signs Temp 98.7 F 12/25/22 00:07 Pulse 72 12/25/22 00:07 Resp 16 12/25/22 00:07 BP 119/53 L 12/25/22 00:07 Pulse Ox 96 12/25/22 00:07 O2 Del Method Room Air 12/25/22 00:07 O2 Flow Rate 98 12/24/22 19:55 BMI result Body Mass Index 26.1 Appearance: postical . Oriented X3 slow to answer. Mild acute distress. Eyes: Pupils equal, round and reactive to light. ENT: Pharynx contusion and swelling with bleeding to left upper lip 1cm puncture wound noted no obvious dental trauma, bridge of nose there is large abrasion and dried blood in both nares with swelling on bridge but no nasal septal hematoma no raccoon or nathan sign, L forehead eyebrow area large abrasion and gouge with 2cm superficial laceration Neck: Normal inspection. Neck supple. CVS: Normal heart rate and rhythm. Pulses normal. Respiratory: No respiratory distress. Breath sounds normal. Abdomen: Soft and nontender. Skin: Skin warm and dry. Normal skin color. Normal skin turgor. Extremities: No lower extremity edema. Neuro: Oriented X 3. No motor deficit. No sensory deficit. Course Course Course Narrative: oral puncture wound is approximated and not gaping will hold off closure Reevaluation(s) Reevaluation #1: still improving, will monitor until more awake, no seizures, sleepy post ativan Medications Administered Discontinued Medications Generic Name Dose Route Start Last Admin Trade Name Freq PRN Reason Stop Dose Admin Sodium Chloride 1,000 mls @ 999 mls/hr 12/24/22 17:15 12/24/22 20:12 Ns IVCONT 12/24/22 18:15 Infused .Q1H1M RL Infusion Lacosamide 300 mg 12/24/22 17:14 12/24/22 18:52 Lacosamide 100 Mg Tablet PO 12/24/22 17:15 300 mg ONCE ONE Administration Lidocaine HCl 5 ml 12/24/22 17:30 12/24/22 20:12 Lidocaine Hcl 1 % Mpf 5 Ml Vial SUBCUT 12/24/22 17:31 5 ml ONCE ONE Administration Lorazepam 2 mg 12/24/22 17:14 12/24/22 17:30 Lorazepam 2 Mg/Ml Vial IVPUSH 12/24/22 17:15 2 mg ONCE ONE Administration Ondansetron HCl 4 mg 12/24/22 17:14 12/24/22 17:30 Ondansetron Hcl 4 Mg/2 Ml Vial IVPUSH 12/24/22 17:15 4 mg ONCE ONE Administration Medical Decision Making Medical Decision Making [facility] Narrative: 57 yo male with PMH of depression, anemia, GERD, DVT but uses aspirin given hx of frequent seizures takes vimpat here with being found down by neighbors and facial trauma with confusion at this time the concern for seizure activity his high given pattern of injury on his face. I have ordered labs, IVF, IV ativan 2mg, his night vimpat he will need repair of his face as well and CT head/cspine/facial bones. He has hx of frequent seizures he notes his last seizure was in September. Differential Diagnosis Differential Diagnoses: The differential diagnosis associated with the presentation includes seizure, syncope, facial trauma, lacerations Admission/Observation Consideration of admission/observation: Escalation of care including admission/observation considered observe until appropriate Lab Data MDM Lab Attestation statement: I reviewed the patient's lab results. 12/24/22 17:28 12/24/22 17:28 Labs: Lab Results 12/24/22 Range/Units 17:28 WBC 5.5 (4.8-10.8) X10*3/uL RBC 4.77 (4.60-5.80) X10*6/uL Hgb 14.9 (14.0-18.0) g/dl Hct 44.1 (42.0-52.0) % MCV 92.5 (80.0-98.0) fL MCH 31.2 (27.0-33.0) pg MCHC 33.8 (31.0-36.0) g/dl RDW 13.2 (11.0-16.0) % Plt Count 103 L (160-400) X10*3/uL MPV 12.0 (9.4-12.4) fL Immature Gran % (Auto) 0.2 (0.0-0.4) % Neut % (Auto) 64.5 (45-73) % Lymph % (Auto) 22.9 (20-40) % Josephine % (Auto) 9.9 (2-11) % Eos % (Auto) 2.0 (0-4) % Baso % (Auto) 0.5 (0-2) % Lymph # (Auto) 1.3 (1.2-4.9) X10*3/uL Josephine # (Auto) 0.6 (0.1-1.2) X10*3/uL Eos # (Auto) 0.1 (0.0-0.4) X10*3/uL Baso # (Auto) 0.0 (0.0-0.2) X10*3/uL Abs Immat Gran (auto) 0.01 (0.00-0.03) X10*3/uL Absolute Neuts (auto) 3.6 (2.0-8.3) x10*3/uL Absolute Nucleated RBC 0.000 (0.0-0.012) X10*3/uL Nucleated RBC % (auto) 0.0 (0.0-0.2) /100WBC PT 12.5 (11.1-13.3) SEC INR 1.0 (0.9-1.1) Sodium 142 (135-145) mmol/L Potassium 4.1 (3.3-5.1) mmol/L Chloride 111 H (96-108) mmol/L Carbon Dioxide 21 L (22-29) mmol/L Anion Gap 14 (12-20) BUN 14 (9-16) mg/dL Creatinine 0.83 (0.5-1.4) mg/dL Estim Creat Clear Calc 102.6 Estimated GFR > 60 Random Glucose 97 (60-115) mg/dL Calcium 9.4 (8.4-10.2) mg/dL Magnesium 2.1 (1.6-2.6) mg/dL Total Bilirubin 0.3 (0.0-1.0) mg/dL Direct Bilirubin 0.1 (0.0-0.5) mg/dL AST 18 (5-37) U/L ALT 16 (0-40) U/L Alkaline Phosphatase 96 (39-117) U/L Total Protein 7.0 (6.5-8.0) g/dL Albumin 4.2 (3.5-5.0) g/dL Ethyl Alcohol < 10 mg/dL Independent Interpretation I performed an independent interpretation of an: EKG and CT Scan (no acute trauma) Interpretation: Rate: 65 Rhythm: NSR Pierce: normal Normal P waves. Normal SUGEY. Normal QRS complex. ST T wave : normal no YAMILET,inverted T wave V1 qTC: normal prior studies: no acute ischemia The study has been interpreted contemporaneously by me. . Radiology Impression Discussion of test interpretation with radiology: I have reviewed the radiologist's reading. Independent Historian Clinical information obtained from an independent historian. History obtained from or confirmed by: EMS External Record Review External record reviewed: Inpatient record and Office record Procedures Laceration Laceration 1: Site: face Size (cm): 2 Description: stellate Depth: simple, single layer Local Anesthetic: lidocaine 1% Amount of anesthesia used (mL): 2 Pre-repair: wound explored and irrigated extensively Skin layer closed with: nylon Size (cm): 5-0 Number of sutures: 3 Technique: simple, interrupted Discharge Plan Discharge Clinical Impression: Epileptic seizure Qualifiers: Epilepsy type: unspecified Intractability: not intractable Status epilepticus: without status epilepticus Qualified Code(s): G40.909 - Epilepsy, unspecified, not intractable, without status epilepticus Blunt trauma of face Qualifiers: Encounter type: initial encounter Qualified Code(s): S09.93XA - Unspecified injury of face, initial encounter Face lacerations Qualifiers: Encounter type: initial encounter Qualified Code(s): S01.81XA - Laceration without foreign body of other part of head, initial encounter Laceration of mouth Qualifiers: Encounter type: initial encounter Qualified Code(s): S01.512A - Laceration without foreign body of oral cavity, initial encounter Patient Disposition: Home, Self-Care Instructions: Laceration (ED), Epilepsy (ED), Facial Laceration (ED) Additional Instructions: CT scans negative of head, cervical spine, facial bones - labs normal given PM dose of vimpat and IVF, sutures out in 7 days on your forehead. okay to shower in 1 day - avoid other water exposures. monitor for redness yellow drainage fevers you have a laceration inside your mouth rinse and swish water after your eat. monitor for fevers and lip swelling your abrasions should be kept clean and dry avoid nose blowing for 3 days follow up with your neurologist Prescriptions: No Action Ocuvite Tablet 1 tab PO DAILY cholecalciferol (vitamin D3) 50 mcg (2,000 unit) capsule 50 mcg PO DAILY clobazam 10 mg tablet 10 mg PO BID topiramate 25 mg capsule, sprinkle 50 mg PO BID lorazepam 1 mg tablet 1 mg PO DAILY PRN (Reason: agitation) topiramate 200 mg tablet 400 mg PO BID aspirin [Adult Aspirin Regimen] 81 mg tablet,delayed release (DR/EC) 81 mg PO DAILY vit C-vit H-kqisxc-cai-om-3 [id number] zf-jcij-si-mg capsule 100 cap PO DAILY Vimpat 150 mg tablet 300 mg PO BID 30 Days Qty: 120 0RF Rx Instructions: Dr. Luther
[2022-12-24] MEDS: 0.9 % Sodium Chloride 1,000 ML 999 ML IVCONT (17:30)
[2022-12-24] MEDS: LORazepam 2 MG/ML VIAL IVPUSH (17:30)
[2022-12-24] MEDS: ondansetron HCL 4 MG/2 ML VIAL IVPUSH (17:30)
[2022-12-24 17:33] LABS: MANUAL DIFF FLAG NO
[2022-12-24 17:35] LABS: Hematocrit 44.1 % (42.0-52.0); Imm Gran Abs Auto 0.01 X10*3/uL (0.00-0.03); Imm Gran Pct Auto 0.2 % (0.0-0.4); PLT CLUMP 1; Red Cell Distribution Width 13.2 % (11.0-16.0); SCAN SMEAR FLAG 1
[2022-12-24 17:37] LABS: Basophils Percent Auto 0.5 % (0-2); Eosinophils Absolute Auto 0.1 X10*3/uL (0.0-0.4); Hemoglobin 14.9 g/dl (14.0-18.0); Lymphocytes Absolute Auto 1.3 X10*3/uL (1.2-4.9); Lymphocytes Percent Auto 22.9 % (20-40); Mean Corpuscular HGB Conc 33.8 g/dl (31.0-36.0); Mean Corpuscular Hemoglobin 31.2 pg (27.0-33.0); Mean Corpuscular Volume 92.5 fL (80.0-98.0); Monocytes Absolute Auto 0.6 X10*3/uL (0.1-1.2); Monocytes Percent Auto 9.9 % (2-11); Neutrophils Absolute Auto 3.6 x10*3/uL (2.0-8.3); Neutrophils Percent Auto 64.5 % (45-73); Red Blood Count 4.77 X10*6/uL (4.60-5.80)
[2022-12-24 17:41] LABS: Platelet Count 103 X10*3/uL (160-400); White Blood Count 5.5 X10*3/uL (4.8-10.8)
[2022-12-24 17:46] LABS: Prothrombin Time 12.5 SEC (11.1-13.3)
[2022-12-24 17:56] VITALS: BP 119/81; PULSE 75; RESP 16; TEMP 36.8; O2SAT 97
[2022-12-24 17:56] LABS: Alanine Aminotransferase 16 U/L (0-40); Albumin Level 4.2 g/dL (3.5-5.0); Alkaline Phosphatase 96 U/L (39-117); Anion Gap 14 (12-20); Aspartate Amino Transferase 18 U/L (5-37); Bilirubin Direct 0.1 mg/dL (0.0-0.5); Bilirubin Total 0.3 mg/dL (0.0-1.0); Blood Urea Nitrogen 14 mg/dL (9-16); Calcium 9.4 mg/dL (8.4-10.2); Carbon Dioxide 21 mmol/L (22-29); Chloride 111 mmol/L (96-108); Creatinine Clr Calc Pharmacy 102.6; Estimated Glomerular Filt Rate > 60; Ethanol < 10 mg/dL; Glucose Random 97 mg/dL (60-115); Magnesium 2.1 mg/dL (1.6-2.6); Potassium 4.1 mmol/L (3.3-5.1); Sodium 142 mmol/L (135-145)
--- NOTE | 2022-12-24 17:57 | MHC.EDTECH ---
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
[2022-12-24] MEDS: Lacosamide 100 MG TABLET 300 MG PO (18:52)
[2022-12-24 19:55] VITALS: BP 124/64; PULSE 73; RESP 16
[2022-12-24] MEDS: Lidocaine HCl 1 % MPF 5 ML VIAL SUBCUT (20:12)
--- NOTE | 2022-12-24 21:06 | MHC.EDTECH ---
PT wounds cleaned up by adarsh atkinson and TORIBIO Aguirre per order. Bloody linen changed with clean linen. pt placed in clean hospital gown
[2022-12-24 21:31] VITALS: BP 120/63; PULSE 65; RESP 15; O2SAT 96
[2022-12-25 00:07] VITALS: BP 119/53; PULSE 72; RESP 16; TEMP 37.1; O2SAT 96
--- NOTE | 2022-12-25 00:49 | MHC.EDTECH ---
This tech helped ambulate pt to the bathroom. pt unsteady on his feet and could not be left alone in bathroom due to risk of falling
[2022-12-25 02:05] VITALS: BP 111/55; PULSE 70; RESP 12; O2SAT 98
== END 2022-12-25 04:40 | disposition home or self-care (01) ==
PROVIDERS: Emergency Provider Emergency Medicine; PCP Internal Medicine
DX: G40.909 Epilepsy, unspecified, not intractable, without status epilepticus (principal); S01.81XA Laceration without foreign body of other part of head, initial encounter; S01.531A Puncture wound without foreign body of lip, initial encounter; S00.31XA Abrasion of nose, initial encounter; S10.0XXA Contusion of throat, initial encounter; W19.XXXA Unspecified fall, initial encounter; Z86.718 Personal history of other venous thrombosis and embolism; Z79.82 Long term (current) use of aspirin; Z79.899 Other long term (current) drug therapy; F17.210 Nicotine dependence, cigarettes, uncomplicated; Y93.89 Activity, other specified; Y92.9 Unspecified place or not applicable; Y99.9 Unspecified external cause status
CPT/HCPCS: 12011; 36415; 70450; 70486; 72125; 80048; 80076; 80307; 83735; 85025; 85610; 93005; 99285; J2060; J2405

== ENCOUNTER 2023-01-01 16:59 | Emergency (ER) | payer MEDICARE, MEDICAID, SELFPAY ==
[2023-01-01] VITALS (8 sets, daily range): BP systolic 104–143; BP diastolic 52–83; PULSE 38–90; RESP 11–24; TEMP 32–35.7; O2SAT 98–100; BMI 28.4
--- NOTE | ~2023-01-01 | CT_ITS ---
EXAMINATION: CT cervical spine wo IV con, CT head/brain wo IV con INDICATION INFORMATION: Reason for Exam trauma, unresponsive COMPARISON: CT brain and cervical spine 12/24/2022 TECHNIQUE: Separate noncontrast CT examinations of the head and cervical spine were performed. Coronal and sagittal images were created for each examination at the technologist workstation. This CT examination was performed using dose optimization techniques as appropriate, variously including the following: *Automated exposure control *Adjustment of mA and/or kV according to patient size (this includes techniques or standardized protocols for targeted exams where dose is matched to indication/reason for exam; i.e. extremities or head) *Use of iterative reconstruction technique DLP: 1325 mGy-cm FINDINGS: Head: Sequela of prior right temporal/parietal craniotomy. No acute osseous or soft tissue abnormality. The mastoid air cells and visualized portions of the paranasal sinuses are well aerated. 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 New, large multicompartment acute right intracranial blood hematoma, including: -holohemispheric right convexity subdural, measuring up to 1.7 cm in thickness superiorly (series 8, image 87), extending to the falx -subarachnoid component in the right frontal sulci (series 3, image 56, and throughout patient's right temporal and inferior parietal encephalomalacia cavity, -Direct extension to intraventricular component, with blood product filling of the lateral ventricular trigones, and fourth ventricle. Thin superior left convexity subdural hematoma, measuring up to 5 mm. Mass effect as manifest by right cerebral sulcal effacement and approximately 5 mm leftward midline shift. No uncal or downward tentorial herniation at this time. No hydrocephalus at this time. Cervical spine: There is no evidence of acute cervical spine fracture. Unchanged mild chronic height loss of the C5, C6, and C7 vertebral bodies. Loss of the usual cervical spine lordosis. Alignment otherwise preserved. Unchanged multilevel loss of disc space height, most pronounced at C3-C4, C5-C6, and C6-C7 with disc osteophyte complexes at those levels. No pre- or paravertebral soft tissue abnormality is identified. Redemonstrated spiculated, partially calcified 8 mm right apical pulmonary nodule. Right greater than left apical paraseptal emphysema. Mucus within the trachea. Partially visualized endotracheal and enteric tubes. Visualized portions of the lung apices are otherwise unremarkable. The thyroid gland is unremarkable. CT/CT cervical spine wo IV con IMPRESSION: 1. New, large predominantly right-sided multicompartment acute subdural, subarachnoid, and intraventricular hemorrhage with mass effect as manifest by right cerebral sulcal effacement and approximately 5 mm leftward midline shift. No downward tentorial herniation at this time. Blood product fills much of the lateral and fourth ventricles without hydrocephalus at this time. 2. No cervical spine fracture or traumatic malalignment. Impression 1 was discussed with IAN Sanchez by Grey Billingsley MD on 01/01/2023 6:18pm and it was ascertained that the content of the report was understood at the time of direct communication.
--- NOTE | 2023-01-01 17:11 | PC.NURSE ---
Patient arrived via ems after being found down in front of where he lives. Patient unresponsive to verbal or tactile stiumlation. C collar placed. Runs of vtachs on montor. 18 g placed in right right forearm. BP 195/102, pulse 129. Prior to intubation right pupil sluggish 3, left pupulnon reactive and irregual 5, MD mcmullen at bedside to intubate along with respiratory. 10mg etomadate at 5:13pm, 50mg rocuronium at 5:13pm. Intubated at 5:14pm mg 2gram running open Brain/ct scan ordered BS 165
--- NOTE | 2023-01-01 17:34 | PC.NURSE ---
Per , d/c amiodarone and propofol orders
--- NOTE | 2023-01-01 17:37 | PC.NURSE ---
vent settings: 18 respirations 420 tidal volume 90% O2 5 peep
--- NOTE | 2023-01-01 17:39 | PC.NURSE ---
Late Entry: prior to intubation, patient was having 1-2 seconds of vtach every 6 seconds. unclear underlying rhythm
--- NOTE | 2023-01-01 17:46 | ED.GENADULT ---
HPI - General Adult General Chief complaint: Altered Mental Status Stated complaint: UNRESPONSIVE Time Seen by Provider: 01/01/23 17:21 Source: EMS Mode of arrival: EMS Limitations: altered mental status (Patient is unresponsive) History of Present Illness HPI narrative: 57-year-old male past medical history significant for seizure disorder presents for evaluation after being found unresponsive. Patient was found outside his apartment unresponsive. EMS was called who found the patient unresponsive with a junctional rhythm in the 40s. They did not witness any seizure activity He was given atropine and brought to the ER for evaluation On evaluation to the emergency department the patient remains unresponsive, he has a GCS of 3, unequal and nonreactive pupils. Patient's breathing pattern was agonal The patient does have sutures above his left eyebrow Related Data Home Medications Medication Instructions Recorded Confirmed cholecalciferol (vitamin D3) 50 50 mcg PO DAILY 12/23/20 09/15/22 mcg (2,000 unit) capsule clobazam 10 mg tablet 10 mg PO BID 12/23/20 09/15/22 topiramate 25 mg sprinkle capsule 50 mg PO BID 12/23/20 09/15/22 aspirin 81 mg tablet,delayed 81 mg PO DAILY 02/22/21 09/15/22 release (Adult Aspirin Regimen) lorazepam 1 mg tablet 1 mg PO DAILY PRN agitation 02/22/21 09/15/22 topiramate 200 mg tablet 400 mg PO BID 09/12/22 09/15/22 vit C-vit K-liocxb-zowwqakv-omega 100 cap PO DAILY 09/12/22 09/15/22 3 100 mg-15 unit-2 mg-100 mg capsule vitamin A-vitamin C-vit E-min 1 tab PO DAILY 09/15/22 09/15/22 tablet Previous Rx's Medication Instructions Recorded lacosamide 150 mg tablet (Vimpat) 300 mg (2 x 150 mg) PO BID 30 days 05/17/21 #120 tabs Allergies Allergy/AdvReac Type Severity Reaction Status Date / Time No Known Allergies Allergy Verified 09/15/22 14:18 Review of Systems Review of Systems: Patient unresponsive Yes unobtainable due to endotracheal tube and Unobtainable due to mental status PMFSH Past Medical History Medical History Face lesion Elbow pain, right Knee pain, right Change in stool Closed left arm fracture Degenerative disc disease, cervical Ulnar neuropathy Carpal tunnel syndrome, left GERD (gastroesophageal reflux disease) Tarsal tunnel syndrome of left side 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 Thrombocytopenia Lupus anticoagulant positive History of DVT (deep vein thrombosis) Pulmonary nodule Seizure disorder Tobacco abuse Surgical History H/O excision of mass (02/22/22) History of surgery History of surgery Family History Family History Father CVD (cardiovascular disease) Cancer of spine Mother Lung cancer Maternal Grandfather Gastric cancer Paternal Grandfather Colon cancer Paternal Aunt Breast cancer Social History Social History Housing: Condominium Alcohol intake: never Patient Tobacco Use Status: Current everyday Tobacco user Tobacco use type: Cigarette Cigarette Packs Per Day: 0.5 Cigarettes Per Day: 10 e-Cigarette/Vaping Use: Never Used Second Hand Smoke Exposure: Yes Advance Directives: No Advance Directives Information Provided: No service: No Current occupational status: disabled Cognitive needs: No Hearing needs: No Vision needs: Yes (glasses) Physical Exam ED Vital Signs: Vital Signs - 24 hr 01/01/23 17:03 01/01/23 17:37 01/01/23 17:46 Temperature Pulse Rate 90 70 63 Respiratory Rate 11 L 19 24 H Blood Pressure 143/83 H 132/82 Pulse Oximetry 98 99 99 Oxygen Delivery Method Room Air Mechanical Ventilation Mechanical Ventilation Fraction of Inspired Oxygen 01/01/23 17:47 01/01/23 17:51 01/01/23 18:31 Temperature 95.7 F L Pulse Rate 56 46 L Respiratory Rate 18 22 H Blood Pressure 123/77 104/54 L Pulse Oximetry 99 100 Oxygen Delivery Method Room Air Mechanical Ventilation Fraction of Inspired Oxygen 100 01/01/23 18:55 01/01/23 19:30 Temperature 96.3 F L Pulse Rate 38 L Respiratory Rate 22 H 18 Blood Pressure 112/52 L Pulse Oximetry 100 Oxygen Delivery Method Mechanical Ventilation Fraction of Inspired Oxygen BMI result Body Mass Index 28.4 Const Other: Patient obtunded with agonal respiration General: patient obtunded; No awake Orientation/consciousness: patient obtunded Eyes Pupils: pupils not ERRL (Pupils unequal and nonreactive) Resp Other: Agonal respirations Neuro Other: GCS of 3 General: patient obtunded Cranial nerves: No Equal, round and reactive pupils present (Pupils unequal and nonreactive) Course Reevaluation(s) Reevaluation #1: Reviewed images of the brain CT confirming large intracranial hemorrhage. There is likely acute subdural hemorrhage with intraparenchymal extension and intraventricular extension. There is a 3-4 mm midline shift. I called [facility] transfer line Time: 17:25 Reevaluation #2: Discussed with [facility] transfer line and Neurosurgery. They would like to review the images before determining placement of [facility] [place]. Still awaiting accepting physician Time: 17:46 Reevaluation #3: Patient's potassium results at 2.5, will treat with IV potassium in normal saline. Unfortunately CT scan uploaded the C-spine images, [facility] call me to let me know they could not review the head CT at this time. I discussed with CT again to reload the brain CT to both the neuro and trauma [facility] Time: 18:14 Additional Reevaluation(s): 6:25 p.m.. Received call back from [facility] transfer line, apparently the neurosurgery team evaluated the scan and recommended the trauma team at [facility] to review the images. I am still awaiting accepting physician as the Trauma team will have to review the images 6:[address] King who accepts transfer of care. He reccommends hypertonic saline that was ordered. I spoke to the patient's brother, Ish who is the primary contact to update him on Adair's grave prognosis and that the patient will be trasnferred to [facility] 7:30 pm. Patient had episodes of bradycardia but remained normotensive throughout, therefore I did not administer atropine. 8:45 pm ALS crew has arrived to transport the patient to [facility] Medications Administered Discontinued Medications Generic Name Dose Route Start Last Admin Trade Name Freq PRN Reason Stop Dose Admin Fentanyl 100 mcg 01/01/23 18:38 01/01/23 18:55 Fentanyl Citrate/Pf 100 Mcg/2 Ml Vial IVPUSH 01/01/23 18:39 100 mcg ONCE ONE Administration Protocol Sodium Chloride 1,000 mls @ 999 mls/hr 01/01/23 18:15 01/01/23 18:36 Ns IV 01/01/23 19:15 999 mls/hr .Q1H1M RL Administration Sodium Chloride 100 mls @ 25 mls/hr 01/01/23 19:00 01/01/23 20:05 Sodium Chloride 3 % IV 01/01/23 22:59 25 mls/hr ONCE ONE Administration Potassium Chloride 10 meq in 100 mls @ 100 mls/hr 01/01/23 19:22 01/01/23 20:20 Potassium Chloride/H20 IV 01/01/23 20:21 100 mls/hr ONCE ONE Administration Midazolam HCl 2 mg 01/01/23 18:38 01/01/23 18:49 Midazolam Hcl/Pf 2 Mg/2 Ml Vial IVPUSH 01/01/23 18:39 2 mg ONCE ONE Administration Procedures Intubation Time out performed: No sedative: Etomidate Mg Given: 10 paralytic: Rocuronium Mg Given: 50 Laryngoscope: fiber optic video scope Assist Device Used: fiber optic device ET Tube Size: 7.5 ET Tube Uncuffed: No Tube Secured Depth (cm): 23 Tube Secured Location: lips Tube Placement Confirmation: visualized tube passing through cords, equal breath sounds bilaterally and confirmation by capnometry Patient Tolerated Procedure: no complications Intubation Complications: none Medical Decision Making Medical Decision Making MDM Narrative: 57-year-old male presents for evaluation of being found unresponsive. Given his unequal pupils, agonal respirations and unresponsive, high suspicion for intracranial bleed. Patient was immediately intubated for airway protection, he was brought to CT scan which confirmed large intracranial hemorrhage. Lab Data 01/01/23 17:24 01/01/23 17:24 Labs: Lab Results 01/01/23 01/01/23 01/01/23 Range/Units 17:00 17:24 19:59 WBC 7.2 (4.8-10.8) X10*3/uL RBC 4.56 L (4.60-5.80) X10*6/uL Hgb 14.2 (14.0-18.0) g/dl Hct 41.4 L (42.0-52.0) % MCV 90.8 (80.0-98.0) fL MCH 31.1 (27.0-33.0) pg MCHC 34.3 (31.0-36.0) g/dl RDW 13.0 (11.0-16.0) % Plt Count 116 L (160-400) X10*3/uL MPV 11.5 (9.4-12.4) fL Immature Gran % (Auto) 0.4 (0.0-0.4) % Neut % (Auto) 55.2 (45-73) % Lymph % (Auto) 33.9 (20-40) % Aiken % (Auto) 8.6 (2-11) % Eos % (Auto) 1.3 (0-4) % Baso % (Auto) 0.6 (0-2) % Lymph # (Auto) 2.4 (1.2-4.9) X10*3/uL Aiken # (Auto) 0.6 (0.1-1.2) X10*3/uL Eos # (Auto) 0.1 (0.0-0.4) X10*3/uL Baso # (Auto) 0.0 (0.0-0.2) X10*3/uL Abs Immat Gran (auto) 0.03 (0.00-0.03) X10*3/uL Absolute Neuts (auto) 4.0 (2.0-8.3) x10*3/uL Absolute Nucleated RBC 0.000 (0.0-0.012) X10*3/uL Nucleated RBC % (auto) 0.0 (0.0-0.2) /100WBC PT 13.3 (11.1-13.3) SEC INR 1.1 (0.9-1.1) APTT 38.9 H (26.0-36.4) SEC Sodium 141 (135-145) mmol/L Potassium 2.5 L* D (3.3-5.1) mmol/L Chloride 113 H (96-108) mmol/L Carbon Dioxide 15 L (22-29) mmol/L Anion Gap 16 (12-20) BUN 12 (9-16) mg/dL Creatinine 0.80 (0.5-1.4) mg/dL Estim Creat Clear Calc 109.2 Estimated GFR > 60 Random Glucose 183 H (60-115) mg/dL Lactic Acid 3.1 H* (0.5-2.0) mmol/L Lactic Acid F/U @ 2Hr 3.4 H* (0.5-2.0) mmol/L Calcium 9.4 (8.4-10.2) mg/dL Total Bilirubin 0.4 (0.0-1.0) mg/dL AST 27 (5-37) U/L ALT 20 (0-40) U/L Alkaline Phosphatase 98 (39-117) U/L Total Creatine Kinase 217 H (38-174) U/L Troponin I High Sens 5.8 (<3.5-35.0) ng/L Total Protein 7.2 (6.5-8.0) g/dL Albumin 4.3 (3.5-5.0) g/dL Critical Care Time Critical Care Time Critical Care Time: Yes Total Critical Care Time: 90 Attestation: Patient arrives with a GCS of 3, agonal breathing. Given the patient was found on the ground, there was a high suspicion for intracranial hemorrhage. He was for airway protection and brought straight to CT scan. I spent approximately 90 minutes caring for this patient alone making numerous phone calls, updating family, managing the patient with medications and ventilation while awaiting transfer Discharge Plan Discharge Clinical Impression: Intracranial hemorrhage Patient Disposition: Xfer [facility] Transfer Details: [facility] Prescriptions: No Action Ocuvite Tablet 1 tab PO DAILY cholecalciferol (vitamin D3) 50 mcg (2,000 unit) capsule 50 mcg PO DAILY clobazam 10 mg tablet 10 mg PO BID topiramate 25 mg capsule, sprinkle 50 mg PO BID lorazepam 1 mg tablet 1 mg PO DAILY PRN (Reason: agitation) topiramate 200 mg tablet 400 mg PO BID aspirin [Adult Aspirin Regimen] 81 mg tablet,delayed release (DR/EC) 81 mg PO DAILY vit C-vit H-wodqxw-okc-om-3 [id number] dl-lgrg-bx-mg capsule 100 cap PO DAILY Vimpat 150 mg tablet 300 mg PO BID 30 Days Qty: 120 0RF Rx Instructions: Dr. Luther Interventions: Acute Care Transfer Worksheet (ED) Last Done: 01/01/23 20:53 Discharge Date/Time: 01/01/23 21:04
--- NOTE | 2023-01-01 18:06 | PC.NURSE ---
temp sensing simon cath placed with output of 10mls clear yellow urine, 100% on vent, head of bed elevated.
--- NOTE | 2023-01-01 18:15 | PC.NURSE ---
Provider aware of core temp 95.5 and decreasing BP/ HR. New orders obatined
--- NOTE | 2023-01-01 18:23 | PC.NURSE ---
Patient noted with depression to back of head, no bleeding or scaring at site. og tube advanced further, stomach bile draining. HR 43, BP 109/56, fluids infusing through warmer
--- NOTE | 2023-01-01 18:33 | PC.NURSE ---
C collar remains in place, plan is to transfer to [facility], provider to notify brother
--- NOTE | 2023-01-01 18:38 | PC.NURSE ---
patient breathing over vent settings, respiratory at bedside, provider notified
--- NOTE | 2023-01-01 19:02 | PC.NURSE ---
NS stopped per provider, medicated per MAR
--- NOTE | 2023-01-01 19:05 | PC.NURSE ---
Brother at bedside, updated on current condition by provider. HR 39, provider aware.
--- NOTE | 2023-01-01 19:13 | PC.NURSE ---
Nurse to nurse given to AJ at [facility], patient to be transfered around 8pm
--- NOTE | 2023-01-01 19:31 | PC.NURSE ---
This keno writer assumed care of this Pt at 1900. Pt on [facility] herrera intact/patent. Pt bother at bedside and updated on plan of care. Pt awaiting [place] [facility] [place].
--- NOTE | 2023-01-01 19:33 | PC.NURSE ---
Pharmacy made aware of meds not in pyxis.
--- NOTE | 2023-01-01 20:37 | PC.NURSE ---
Brother Ish took all Pt belongings home.
== END 2023-01-01 21:04 | disposition short-term general hospital (02) ==
PROVIDERS: Emergency Provider Internal Medicine
DX: I62.9 Nontraumatic intracranial hemorrhage, unspecified (principal); R56.9 Unspecified convulsions; R40.2430 Glasgow coma scale score 3-8, unspecified time; R94.31 Abnormal electrocardiogram [ECG] [EKG]; R51.9 Headache, unspecified; M54.2 Cervicalgia; F17.200 Nicotine dependence, unspecified, uncomplicated; Z71.6 Tobacco abuse counseling; Z79.899 Other long term (current) drug therapy
CPT/HCPCS: 31500; 36415; 51702; 70450; 71045; 72125; 80053; 82550; 83605; 84484; 85025; 85610; 85730; 87040; 93005; 94002; 96365; 96366; 96367; 96375; 99285; J2250; J3010; J7131